=== PATIENT | male | born 2000 | race Caucasian/White ===

== ENCOUNTER 2023-03-26 21:17 | Observation (INO) ==
--- NOTE | 2023-03-26 22:18 | XRay Report ---
SINGLE VIEW CHEST CLINICAL HISTORY: Atypical chest pain. FINDINGS: A PA chest radiograph is obtained. No prior studies are available for comparison at the alix e of dictation. The cardiomediastinal silhouette is unremarkable. The lungs and pleural spaces are cl ear. No pneumothorax is seen. The bony thorax is grossly intact. IMPRESSION: No active disease in the chest. ACT 112: Negative or not required by law. Electronically signed by: Anam Hernandez M.D. 03/26/2023 10:17 PM
[2023-03-26 22:20] LABS: Basophils # (auto) 0.05 K/uL (0.00-0.20); Basophils % (auto) 0.3 %; Eosinophils # (auto) 0.15 K/uL (0.00-0.50); Eosinophils % (auto) 0.9 %; Hematocrit (blood only) 47.1 % (42.0-52.0); Hemoglobin 15.5 g/dl (14.0-18.0); Immature Granulocytes # (auto) 0.06 K/uL (0.01-0.20); Immature Granulocytes % (auto) 0.4 %; Lymphocytes # (auto) 1.46 K/uL (1.20-3.40); Lymphocytes % (auto) 9.1 %; Mean Corpuscular Hemoglobin 26.5 pg (25.0-34.0); Mean Corpuscular Hgb Conc 32.9 g/dL (32.0-36.0); Mean Corpuscular Volume 80.7 fL (80.0-100.0); Mean Platelet Volume 10.5 fL (9.4-12.4); Monocytes # (auto) 0.69 K/uL (0.11-0.59); Monocytes % (auto) 4.3 %; Neutrophils # (auto) 13.63 K/uL (1.40-6.50); Platelet Count 237 K/uL (130-400); RDW Coefficient of Variation 13.2 % (11.5-14.5); RDW Standard Deviation 38.3 fL (36.4-46.3); Red Blood Count 5.84 M/uL (4.70-6.10); White Blood Count 16.04 K/ul (4.8-10.8)
[2023-03-26 22:36] LABS: Albumin Globulin Ratio 1.5 (0.9-2); BUN Creatinine Ratio 11.4 (10-20); Bilirubin,Total 0.7 mg/dl (0.2-1.0); Calcium 10.5 mg/dl (8.6-10.3); Creatinine Clr Calc Pharmacy 105.8 ml/min; Est GFR (African American) 88.7 ml/min; Est GFR (Non-African American) 76.6 ml/min; Globulin 3.4 gm/dl (2.5-4.0); Potassium 3.7 mmol/L (3.5-5.1); Total Protein 8.4 gm/dl (6.0-8.3)
[2023-03-26 22:42] LABS: Troponin I High Sensitivity 6.4 pg/ml (0-20)
[2023-03-27] MEDS ORDERED: OPTIRAY 320 125ml IV ONE (01:00)
--- NOTE | 2023-03-27 04:49 | CT Scan Report ---
Exam(s): CTA CHEST IV Amt: 100 ml opti 320 EXAM: CT Angiography Chest With Intravenous Contrast CLINICAL HISTORY: Reason for exam: PE. TECHNIQUE: Axial computed tomographic angiography images of the chest with intravenous contrast. CTDI is 33.25 mGy and DLP is 766.38 mGy-cm. Automated exposure control was utilized for the study. A dose lowering technique was utilized adhering to the principles of ALARA. MIP reconstructed images were created and reviewed. COMPARISON: No relevant prior studies available. FINDINGS: Pulmonary arteries: Unremarkable. No pulmonary embolism. Aorta: No acute findings. No thoracic aortic aneurysm. Lungs: Unremarkable. No mass. No consolidation. Pleural space: Unremarkable. No significant effusion. No pneumothorax. Heart: Unremarkable. No cardiomegaly. No significant pericardial effusion. No evidence of RV dysfunction. Bones/joints: No acute fracture. No dislocation. Soft tissues: Unremarkable. Lymph nodes: Unremarkable. No enlarged lymph nodes. IMPRESSION: Normal chest CTA. No pulmonary embolism. Electronically signed by: Vlad Garcia MD 03/27/23 04:48 AM
[2023-03-27 06:36] LABS: Influenza A virus by PCR Negative (Neg); Influenza B virus by PCR Negative (Neg); RSV by PCR Negative (Neg); SARS CoV2 RNA(COVID-19) Ceph NEGATIVE (Negative)
--- NOTE | 2023-03-27 06:37 | History & Physical Report ---
Date of Service March 27, 2023 Assessment & Plan (1) Chest pain: Plan: 22yo male with one week of intermittent chest pain, pleuritic, but non- positional and non-exertional. Etiology unclear. Patient with normal troponin x 1, normal EKG with no ischemic changes. CTA without PE. Possibly secondary to asthma? consider possible arrhythmia, pericarditis - unlikely as no effusion noted, no EKG changes, anxiety? -Telemetry monitoring -Repeat troponin x 1 -Check 2D echo - limited study ordered -Check Mg, PO4 -Check TSH (2) Confusion: Plan: Patient with episode of confusion, does not fully recollect events prior to arrival. Possible arrhythmia, possible seizure. No history of seizure in the past. Has had multiple concussions -Awaiting UTox -Awaiting CT head result -Neuro checks q 2 hours -Consider Neurology consultation pending additional workup results (3) Asthma: Plan: No cough, SOB or wheeze at present -Albuterol PRN F/E/N - Saline lock. Mild hypercalcemia, repeat labs in AM, regular diet as tolerated Ppx - Low risk for DVT Code - Full Dispo - Observation to medical with telemetry History of Present Illness Chief Complaint: chest pain Primary Care Provider: NO PCP Darío Mauro is a 22yo male with history of mild persistent asthma and allergies presenting with chest pain and episode of transient confusion. History obtained from patient as well as girlfriend Sandra and parents at bedside. Patient reports that he has been having episodes of chest pain all week. Pain is bandlike across upper chest - feels like tightness and "pins and needles". Pain is worse with deep breathing. Episodes last approximately 20 minutes then resolve on their own. He has associated palpitations but no dizziness, lightheadedness or syncope. He denies recent trauma or muscle strain. He has been taking his Albuterol inhaler more frequently than usual with no relief in the chest discomfort. This evening patient was complaining of chest pain. He got into the shower. Shortly later his girlfriend found him sitting in the bedroom, very pale, tired and somewhat confused. He was complaining of feeling dizzy. He was speaking very slowly and told her that he needed to take a shower (after he just took one). He then developed more severe chest pain and was grabbing at his chest. His girlfriend placed a FaceTime call to patient's parents in [place], [place]. Mother reports that patient appeared tired and confused. He was hanging his head and speaking very slowly. He continued to complain of very severe chest pain so he was brought to the ER by his girlfriend. Family reports that patient's speech was clear and appropriate but slow. No facial droop. No focal numbness/tingling or weakness. Patient is uncertain if he passed out in the shower. He has been having a stuffy nose and some mild cough as well, otherwise denies fever, chills, headache, visual changes, stiff neck, abdominal pain, nausea, vomiting, diarrhea. No additional complaints at this time. Patient with no cardiac history. He is active in sports and exercises frequently. No history of exertional or post-exertional chest pain, palpitations or syncope. He has had several concussions in the past due to sports. Possibly a seizure when he was a small child - mother recalls him having an EEG study in the past. He also had an episode of transient visual disturbance as a child which was thought to be likely secondary to migraine. He denies recent head trauma or concussion. No headache or migraine symptoms. In the ER he is afebrile, hypertensive otherwise HD stable. Home Medications Medication Instructions Recorded Confirmed Type albuterol sulfate 90 mcg/actuation 2 puff inhalation UD PRN Shortness 03/27/23 03/27/23 History aerosol inhaler Of Breath Or Wheezing beclomethasone dipropionate 80 80 mcg intranasal UD 03/27/23 03/27/23 History mcg/actuation nasal HFA inhaler (QNASL) epinephrine 0.3 mg/0.3 mL 0.3 ml IM UD PRN Allergic Reaction 03/27/23 03/27/23 History injection, auto-injector Past Med/Surg History Medical History Asthma Surgical History History of tonsillectomy and adenoidectomy Family History Other Cancer Social History Smoking Status: Never smoker Hx Alcohol Use: Yes Alcohol type Comment: weekend use Hx Substance Use: Yes Prescribed Medications: Marijuana Feels Safe at Home: Yes Review of Systems Review of Systems: All systems reviewed & are unremarkable except as noted in HPI & below Physical Exam Physical Exam: General: patient resting comfortably, NAD, non-toxic in appearance, answering questions appropriately and following commands Skin: warm, dry, intact, no rashes or lesions HEENT: NC/AT, Pupils slightly enlarged 7mm equal bilaterally, reactive to light, EOMI, anicteric sclera, conjunctiva without injection, external ear normal to inspection and nontender, nares patent, moist mucus membranes, dentition intact, no oropharyngeal lesions, neck supple, trachea midline, no LAD, no thyromegaly, no JVD Heart: +S1/S2, regular, no m/r/g, no chest wall pain with palpation Lungs: equal air entry bilaterally, no rales/rhonchi/wheezes Abd: +BS, soft, NT/ND, no masses/organomegaly/ascites Ext: warm, 2+ pulses in UE/LE bilaterally, no clubbing/cyanosis or edema Neuro: nonfocal, patient AA&O x 4, speech intact, no facial droop, CN II-XII grossly intact, sensation to light touch intact, moving all extremities on command with equal strength 5/5, no drift Results & Data Results & Data Vital Signs (Past 12 Hours) Vital Signs Temp Pulse Pulse Resp BP BP Pulse Ox 03/27/23 05:29 55 L 03/27/23 05:14 67 16 155/69 H 100 03/27/23 04:00 54 L 14 102/37 L 98 03/27/23 03:11 58 L 20 118/66 97 03/27/23 01:55 74 18 126/67 96 03/27/23 01:26 64 03/26/23 23:45 100 03/26/23 23:45 58 L 18 140/78 100 03/26/23 21:21 36.5 C 87 16 160/77 H 98 O2 Del Method 03/27/23 05:29 03/27/23 05:14 03/27/23 04:00 03/27/23 03:11 03/27/23 01:55 Room Air 03/27/23 01:26 03/26/23 23:45 Room Air 03/26/23 23:45 Room Air 03/26/23 21:21 Room Air Laboratory Results Laboratory Results WBC 16.04 K/ul (4.8-10.8) H 03/26/23 21:59 RBC 5.84 M/uL (4.70-6.10) 03/26/23 21:59 Hgb 15.5 g/dl (14.0-18.0) 03/26/23 21:59 Hct 47.1 % (42.0-52.0) 03/26/23 21:59 MCV 80.7 fL (80.0-100.0) 03/26/23 21:59 MCH 26.5 pg (25.0-34.0) 03/26/23 21:59 MCHC 32.9 g/dL (32.0-36.0) 03/26/23 21:59 RDW Std Deviation 38.3 fL (36.4-46.3) 03/26/23 21:59 RDW Coeff of Maik 13.2 % (11.5-14.5) 03/26/23 21:59 Plt Count 237 K/uL (130-400) 03/26/23 21:59 MPV 10.5 fL (9.4-12.4) 03/26/23 21:59 Immature Gran % (Auto) 0.4 % 03/26/23 21:59 Neut % (Auto) 85.0 % 03/26/23 21:59 Lymph % (Auto) 9.1 % 03/26/23 21:59 Laurens % (Auto) 4.3 % 03/26/23 21:59 Eos % (Auto) 0.9 % 03/26/23 21:59 Baso % (Auto) 0.3 % 03/26/23 21:59 Neut # (Auto) 13.63 K/uL (1.40-6.50) H 03/26/23 21:59 Lymph # (Auto) 1.46 K/uL (1.20-3.40) 03/26/23 21:59 Laurens # (Auto) 0.69 K/uL (0.11-0.59) H 03/26/23 21:59 Eos # (Auto) 0.15 K/uL (0.00-0.50) 03/26/23 21:59 Baso # (Auto) 0.05 K/uL (0.00-0.20) 03/26/23 21:59 Immature Gran # (Auto) 0.06 K/uL (0.01-0.20) 03/26/23 21:59 Sodium 136 mmol/L (136-145) 03/26/23 21:59 Potassium 3.7 mmol/L (3.5-5.1) 03/26/23 21:59 Chloride 101 mmol/L (98-107) 03/26/23 21:59 Carbon Dioxide 29 mmol/L (21-32) 03/26/23 21:59 Anion Gap 6 (3-11) 03/26/23 21:59 BUN 15 mg/dl (6-23) 03/26/23 21:59 Creatinine 1.32 mg/dl (0.6-1.4) 03/26/23 21:59 Est Cr Clr Drug Dosing 105.8 ml/min 03/26/23 21:59 Est GFR ( Amer) 88.7 ml/min 03/26/23 21:59 Est GFR (Non-Af Amer) 76.6 ml/min 03/26/23 21:59 BUN/Creatinine Ratio 11.4 (10-20) 03/26/23 21:59 Glucose 113 mg/dl (70-99(Fasting)) H 03/26/23 21:59 Calcium 10.5 mg/dl (8.6-10.3) H 03/26/23 21:59 Total Bilirubin 0.7 mg/dl (0.2-1.0) 03/26/23 21:59 AST 22 U/L (13-39) 03/26/23 21:59 ALT 39 U/L (7-52) 03/26/23 21:59 Alkaline Phosphatase 73 U/L (34-104) 03/26/23 21:59 Troponin I High Sens 6.4 pg/ml (0-20) 03/26/23 21:59 Total Protein 8.4 gm/dl (6.0-8.3) H 03/26/23 21:59 Albumin 5.0 gm/dl (3.4-5.0) 03/26/23 21:59 Globulin 3.4 gm/dl (2.5-4.0) 03/26/23 21:59 Albumin/Globulin Ratio 1.5 (0.9-2) 03/26/23 21:59 Lipase 26 U/L (11-82) 03/26/23 21:59 Impressions Chest X-Ray 03/26/23 21:24 SINGLE VIEW CHEST CLINICAL HISTORY: Atypical chest pain. FINDINGS: A PA chest radiograph is obtained. No prior studies are available for comparison at the time of dictation. The cardiomediastinal silhouette is unremarkable. The lungs and pleural spaces are clear. No pneumothorax is seen. The bony thorax is grossly intact. IMPRESSION: No active disease in the chest. ACT 112: Negative or not required by law. Electronically signed by: Anam Hernandez M.D. 03/26/2023 10:17 PM Chest CTA 03/27/23 00:31 Exam(s): CTA CHEST IV Amt: 100 ml opti 320 EXAM: CT Angiography Chest With Intravenous Contrast CLINICAL HISTORY: Reason for exam: PE. TECHNIQUE: Axial computed tomographic angiography images of the chest with intravenous contrast. CTDI is 33.25 mGy and DLP is 766.38 mGy-cm. Automated exposure control was utilized for the study. A dose lowering technique was utilized adhering to the principles of ALARA. MIP reconstructed images were created and reviewed. COMPARISON: No relevant prior studies available. FINDINGS: Pulmonary arteries: Unremarkable. No pulmonary embolism. Aorta: No acute findings. No thoracic aortic aneurysm. Lungs: Unremarkable. No mass. No consolidation. Pleural space: Unremarkable. No significant effusion. No pneumothorax. Heart: Unremarkable. No cardiomegaly. No significant pericardial effusion. No evidence of RV dysfunction. Bones/joints: No acute fracture. No dislocation. Soft tissues: Unremarkable. Lymph nodes: Unremarkable. No enlarged lymph nodes. IMPRESSION: Normal chest CTA. No pulmonary embolism. Electronically signed by: Vlad Garcia MD 03/27/23 04:48 AM ECG Additional Comments: EKG with NSR at 78bpm, nomal axis, OL=327, QRS=98, HMx=884, no acute ischemic changes PG Care Time/CCT Total # of Minutes Spent Total Time Spent with Patient: Total time spent is greater than 50% in coordination of care (as documented) at patient's floor/unit and/or counseling patient: Coding Level of Care Code 93822 INT INP/OBS CARE 2/55MIN Diagnoses Chest pain R07.9 Confusion R41.0 Asthma J45.909
[2023-03-27 06:40] LABS: Amphetamines+Metham, Urine Neg (Neg); Barbiturates, Urine Neg (Neg); Benzodiazepine, Urine Neg (Neg); Cocaine, Urine Neg (Neg); MDMA (Ecstacy), Urine Neg (Neg); Methadone, Urine Neg (Neg); Opiate, Urine Neg (Neg); Phencyclidine, Urine Neg (Neg)
--- NOTE | 2023-03-27 07:12 | CT Scan Report ---
CT head/brain wo con CLINICAL HISTORY: altered ms Technique: Contiguous axial CT images of the head were acquired from the base of the skull to the pete saad without intravenous contrast administration. Images were viewed in brain, subdural and bone [facility]. Automated dose lowering techniques and/or adjustment according to patient size were utilized for this exam. Comparison: None available at the time of this dictation. Findings: The ventricles, basal cisterns, and cerebral sulci are normal. There is no acute intracranial hemorrh age or evidence of acute territorial infarction. Neither mass effect, shift of the midline structures , nor abnormal extra-axial fluid collections are shown. Imaged portions of the paranasal sinuses and mastoid air cells are clear. The orbits appear normal. There are no acute fractures of the calvaria or scalp swelling. Impression: No acute intracranial hemorrhage, no evidence of acute territorial infarction or other acute intracra nial disease process. ACT 112: Negative or not required by law. Electronically signed by: Brent James M.D. 03/27/2023 7:10 AM
--- NOTE | 2023-03-27 08:31 | Emergency Department Note ---
Impression & Plan Left-sided chest pain, Acute alteration in mental status, Heart palpitations Admit to the [facility] ED Provider Note NAME: ABDULLAHI FERNANDEZ AGE: 22 SEX: M ARRIVES VIA: Walk-In INFORMANT: Patient and his girlfriend ED PROVIDER(S): Mary Underwood DO CHIEF COMPLAINT: Left-sided chest pain and altered mental status PLAN: Disposition: Admit to the [facility] Condition: Stable MEDICAL DECISION MAKING: This is a 22-year-old male patient who presents to the emergency department with an episode of palpitations, chest pain, near syncope and altered mental status. The patient does have a history of asthma but these episodes are not consistent with his usual asthma attacks. He has been waking in the mornings with episodes of chest pain and heart palpitations. Today's episode was accompanied by an altered mental status and shortness of breath. Work-up today included a normal EKG. Laboratory studies did show moderate leukocytosis with a white blood cell count of 16. There was no evidence of anemia. Glucose was 113. There was normal renal function and electrolytes. High-sensitivity troponin was normal. Initial chest x-ray was normal. EKG was normal sinus rhythm. I remain concerned about the possibility of a pulmonary embolism so CT scan of the chest was ordered but was negative. Patient's mental status for me was normal but by history from the girlfriend and then when the parents arrived gave a description of a prolonged delirium. He does not have recollection of some of the events of today. I remain concerned about the presentation and [facility] and [facility] will [facility] for further inpatient care and neurology evaluation. We talked about the possibility of a cardiac dysrhythmia and the need for cardiac monitoring as well as the possibility of a seizure. Triage Nursing notes reviewed and agree with them. Additional history obtained from the patient's girlfriend who accompanied him here to the hospital and then patient's parents arrived later. Vital Signs: reviewed and unremarkable Differential diagnosis: Cardiac dysrhythmia, PE, seizure, syncope, hypoxia, intracranial mass Diagnostics interpreted by me: ECG: Normal sinus rhythm at [address] segment elevation or signs of ischemia. There is no ectopy. Cardiac Monitoring: Normal sinus rhythm at 72 Laboratory studies: See below Imaging studies: As per stat rad CT chest: See report HPI: 22/M arrives for evaluation of chest pain and lightheadedness. Patient describes having heart palpitations and slight chest discomfort upon awakening over the past couple of days. He has had increased asthma attacks for the past couple days as well and has been using his inhaler more frequently. However today, the patient had an episode of fairly severe chest pain and lightheadedness along with palpitations for which he used his inhaler. It seemed to subside and he went to get in the shower. He then got out of the shower because he felt increasingly short of breath. His girlfriend explains that he was quite pale and seemed to have an altered mental status. A FaceTime and with his parents and the parents state that he was out of it with altered mental status at that time. They encouraged them to go to the hospital. They required some assistance to get the patient into the car. He has no recollection of getting to the hospital. 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 Pupils are equal, round, and reactive to light. Extraocular eye muscles are intact and sclera are anicteric. Ears - bilaterally patent canals with noninjected tympanic membranes and no evidence of hemotympanum. Nose - moist nasal mucosa without discharge. Mouth - moist buccal mucosa. Oropharynx is nonerythematous and there is no tonsillar exudate or edema noted. Neck: Supple; no JVD, nuchal rigidity, cervical lymphadenopathy, or auscultated bruits. Heart: Regular rate and rhythm. There is a normal S1 and S2 with no murmurs, clicks, or gallops appreciated. Lungs: Clear to auscultation bilaterally with no wheezes, rales, or rhonchi. Abdomen: Soft, completely nontender, nondistended, with good bowel sounds. There are no palpable pulsatile masses or hepatosplenomegaly. There is no guarding, rigidity, or rebound noted. Extremities: No evidence of cyanosis, clubbing, or edema. There are easily palpable peripheral pulses. Neuro:The patient is awake and alert, oriented to day, time, and place. Muscle strength is 5/5 in all 4 extremities. 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 There are no cerebellar signs. ED COURSE: Times/Reassessments: 0010: Patient was evaluated in room B2. A complete history and physical was performed. An order was placed for continuous cardiac monitoring. Patient was in a normal sinus rhythm at a rate of 72. A twelve- lead EKG was obtained as described above. A portable chest x-ray was performed. I reviewed the results with the patient and his girlfriend. Patient's parents arrived. He went for CT scan of the chest. We then had a lengthy discussion about the overall events of the day and remain concerned about the patient's presentation. I discussed the case with the [facility] and they will evaluate for further inpatient care. 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 Beliefs That Will Affect Care: None Current Living Situation: Other Feels Safe at Home: Yes Allergies Allergies Allergy/AdvReac Type Severity Reaction Status Date / Time Penicillins Allergy Hives Verified 03/27/23 09:29 pepper (genus Capsicum) Allergy Hives Verified 03/27/23 09:30 tree nut Allergy Hives Verified 03/27/23 09:29 Home Meds Home Medications Medication Instructions Recorded Confirmed albuterol sulfate 90 mcg/actuation 2 puff inhalation UD PRN Shortness 03/27/23 03/27/23 aerosol inhaler Of Breath Or Wheezing beclomethasone dipropionate 80 80 mcg intranasal UD 03/27/23 03/27/23 mcg/actuation nasal HFA inhaler (QNASL) epinephrine 0.3 mg/0.3 mL 0.3 ml IM UD PRN Allergic Reaction 03/27/23 03/27/23 injection, auto-injector Results & Data (ED) Vital Signs Vital Signs - 24 hr 03/26/23 23:45 03/26/23 23:45 03/27/23 01:26 Pulse Rate 64 Pulse Rate [Apical] 58 L Pulse Rhythm [Apical] Regular Respiratory Rate 18 Respiratory Effort / Characteristics Non-Labored Spontaneous Respiratory Depth Normal Respiratory Pattern Regular Blood Pressure Blood Pressure [Right Arm] 140/78 Blood Pressure Mean Blood Pressure Mean [Right Arm] 98 Blood Pressure Position [Right Arm] Lying Pulse Oximetry 100 100 Oxygen Delivery Method Room Air Room Air 03/27/23 01:55 03/27/23 03:11 03/27/23 04:00 Pulse Rate 58 L 54 L Pulse Rate [Apical] 74 Pulse Rhythm [Apical] Regular Respiratory Rate 18 20 14 Respiratory Effort / Characteristics Non-Labored Spontaneous Respiratory Depth Normal Respiratory Pattern Regular Blood Pressure 118/66 102/37 L Blood Pressure [Right Arm] 126/67 Blood Pressure Mean 83 58 Blood Pressure Mean [Right Arm] 86 Blood Pressure Position [Right Arm] Lying Pulse Oximetry 96 97 98 Oxygen Delivery Method Room Air 03/27/23 05:14 03/27/23 05:29 Pulse Rate 67 55 L Pulse Rate [Apical] Pulse Rhythm [Apical] Respiratory Rate 16 Respiratory Effort / Characteristics Respiratory Depth Respiratory Pattern Blood Pressure 155/69 H Blood Pressure [Right Arm] Blood Pressure Mean 97 Blood Pressure Mean [Right Arm] Blood Pressure Position [Right Arm] Pulse Oximetry 100 Oxygen Delivery Method Laboratory Data 03/26/23 21:59 03/26/23 21:59 Lab Results 03/26/23 03/26/23 Range/Units 21:59 21:59 WBC 16.04 H (4.8-10.8) K/ul RBC 5.84 (4.70-6.10) M/uL Hgb 15.5 (14.0-18.0) g/dl Hct 47.1 (42.0-52.0) % MCV 80.7 (80.0-100.0) fL MCH 26.5 (25.0-34.0) pg MCHC 32.9 (32.0-36.0) g/dL RDW Std Deviation 38.3 (36.4-46.3) fL RDW Coeff of Maik 13.2 (11.5-14.5) % Plt Count 237 (130-400) K/uL MPV 10.5 (9.4-12.4) fL Immature Gran % (Auto) 0.4 % Neut % (Auto) 85.0 % Lymph % (Auto) 9.1 % [place] % (Auto) 4.3 % Eos % (Auto) 0.9 % Baso % (Auto) 0.3 % Neut # (Auto) 13.63 H (1.40-6.50) K/uL Lymph # (Auto) 1.46 (1.20-3.40) K/uL [place] # (Auto) 0.69 H (0.11-0.59) K/uL Eos # (Auto) 0.15 (0.00-0.50) K/uL Baso # (Auto) 0.05 (0.00-0.20) K/uL Immature Gran # (Auto) 0.06 (0.01-0.20) K/uL Sodium 136 (136-145) mmol/L Potassium 3.7 (3.5-5.1) mmol/L Chloride 101 (98-107) mmol/L Carbon Dioxide 29 (21-32) mmol/L Anion Gap 6 (3-11) BUN 15 (6-23) mg/dl Creatinine 1.32 (0.6-1.4) mg/dl Est Cr Clr Drug Dosing 105.8 ml/min Est GFR ( Amer) 88.7 ml/min Est GFR (Non-Af Amer) 76.6 ml/min BUN/Creatinine Ratio 11.4 (10-20) Glucose 113 H (70-99(Fasting)) mg/dl Calcium 10.5 H (8.6-10.3) mg/dl Total Bilirubin 0.7 (0.2-1.0) mg/dl AST 22 (13-39) U/L ALT 39 (7-52) U/L Alkaline Phosphatase 73 (34-104) U/L Troponin I High Sens 6.4 (0-20) pg/ml Total Protein 8.4 H (6.0-8.3) gm/dl Albumin 5.0 (3.4-5.0) gm/dl Globulin 3.4 (2.5-4.0) gm/dl Albumin/Globulin Ratio 1.5 (0.9-2) Lipase 26 (11-82) U/L Administered Medications Discontinued Medications Gadobutrol (Gadobutrol 65ml Vial) 10 ml IV ONCE ONE Stop: 03/27/23 18:25 Last Admin: 03/27/23 18:24 Dose: 10 ml Documented By: YIMI Ioversol (Optiray 320 125ml) 100 ml IV ONCE ONE Stop: 03/27/23 01:01 Last Admin: 03/27/23 01:01 Dose: 100 ml Documented By: JOSE DANIEL Imaging Data Radiologist's Impression: Chest X-Ray 03/26/23 21:24 SINGLE VIEW CHEST CLINICAL HISTORY: Atypical chest pain. FINDINGS: A PA chest radiograph is obtained. No prior studies are available for comparison at the time of dictation. The cardiomediastinal silhouette is unremarkable. The lungs and pleural spaces are clear. No pneumothorax is seen. The bony thorax is grossly intact. IMPRESSION: No active disease in the chest. ACT 112: Negative or not required by law. Electronically signed by: Anam Hernandez M.D. 03/26/2023 10:17 PM Chest CTA 03/27/23 00:31 Exam(s): CTA CHEST IV Amt: 100 ml opti 320 EXAM: CT Angiography Chest With Intravenous Contrast CLINICAL HISTORY: Reason for exam: PE. TECHNIQUE: Axial computed tomographic angiography images of the chest with intravenous contrast. CTDI is 33.25 mGy and DLP is 766.38 mGy-cm. Automated exposure control was utilized for the study. A dose lowering technique was utilized adhering to the principles of ALARA. MIP reconstructed images were created and reviewed. COMPARISON: No relevant prior studies available. FINDINGS: Pulmonary arteries: Unremarkable. No pulmonary embolism. Aorta: No acute findings. No thoracic aortic aneurysm. Lungs: Unremarkable. No mass. No consolidation. Pleural space: Unremarkable. No significant effusion. No pneumothorax. Heart: Unremarkable. No cardiomegaly. No significant pericardial effusion. No evidence of RV dysfunction. Bones/joints: No acute fracture. No dislocation. Soft tissues: Unremarkable. Lymph nodes: Unremarkable. No enlarged lymph nodes. IMPRESSION: Normal chest CTA. No pulmonary embolism. Electronically signed by: Vlad Garcia MD 03/27/23 04:[address] 03/27/23 05:21 CT head/brain wo con CLINICAL HISTORY: altered ms Technique: Contiguous axial CT images of the head were acquired from the base of the skull to the vertex without intravenous contrast administration. Images were viewed in brain, subdural and bone windows. Automated dose lowering techniques and/or adjustment according to patient size were utilized for this exam. Comparison: None available at the time of this dictation. Findings: The ventricles, basal cisterns, and cerebral sulci are normal. There is no acute intracranial hemorrhage or evidence of acute territorial infarction. Neither mass effect, shift of the midline structures, nor abnormal extra-axial fluid collections are shown. Imaged portions of the paranasal sinuses and mastoid air cells are clear. The orbits appear normal. There are no acute fractures of the calvaria or scalp swelling. Impression: No acute intracranial hemorrhage, no evidence of acute territorial infarction or other acute intracranial disease process. ACT 112: Negative or not required by law. Electronically signed by: Brent James M.D. 03/27/2023 7:10 AM Discharge Plan Visit Data Chief Complaint: Chest Pain Stated Complaint: CHEST PAIN ED Provider: Mary Underwood Discharge Problem: Left-sided chest pain, Acute alteration in mental status, Heart palpitations Patient Disposition: Admitted As Inpatient Discharge Instructions Interventions: ED Discharge Assessment Last Done: 03/27/23 14:32
[2023-03-27] MEDS ORDERED: ACETAMINOPHEN 325 MG TAB PO PRN (08:57)
[2023-03-27] MEDS ORDERED: ALBUTEROL HFA 8 GM INHALER INH PRN (08:57)
[2023-03-27] MEDS ORDERED: ONDANSETRON INJ 2 MG/ML 2 ML VIAL IV PRN (08:57)
[2023-03-27] MEDS ORDERED: Patient's ALLERGY Info needs ENTERED SCH (09:15)
[2023-03-27 10:23] LABS: Magnesium 2.1 mg/dl (1.7-2.4); Phosphorus 4.4 mg/dl (2.5-4.9)
[2023-03-27 10:30] LABS: Troponin I High Sensitivity 3.3 pg/ml (0-20)
[2023-03-27 10:39] LABS: Thyroid Stimulating Hormone 2.089 uIu/ml (0.300-4.500)
--- NOTE | 2023-03-27 12:11 | Neurology Consultation ---
Date of Consultation March 27, 2023 Assessment & Plan (1) Pre-syncope: (2) Episode of confusion: (3) Migraine with aura: Plan 22-year-old male who has been experiencing recurrent episodes of chest pain, palpitations, now presenting with a similar episode with associated presyncopal symptoms and confusion. No clear loss of consciousness. No observed seizure activity. Intact mental status and neurological examination at this time. Normal CT of the head. Normal EEG completed this morning. Does appear to have bradycardia. Patient also experiences episodic migraine with aura/classic migraine. Overall frequency low, and not related to his current presentation. Would recommend cardiac evaluation including echocardiogram, cardiac monitoring on telemetry, consider cardiology consultation. Consider 30-day mobile cardiac outpatient telemetry. I am uncertain if his recent episode may have been related to a paradoxical effect from his albuterol inhaler which he used prior to symptom onset. I am uncertain if his use of medical marijuana may also have contributed to his episode. His presentation does not seem very consistent with seizure disorder. However, would recommend MRI of the brain, with and without contrast, seizure protocol. Would not start an antiseizure medication at this time. I will advise further, if necessary, pending completion of his brain MRI. I would not recommend starting any particular treatment for his infrequent migraine. However, going forward, if he were to require an acute abortive medication, other than ipiv-hut-oxirdka analgesics, I think a trial of a CGRP jose such as Nurtec ODT, or Ubrelvy, would be preferable given his uncertain cardiac status. 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 Last night, he had experienced another episode of chest pain, took a shower, was sitting in his bedroom, apparently looking pale and confused. He endorsed a feeling of dizziness. Symptoms were witnessed by his partner who brought him to the emergency department for further evaluation. His parents are currently at bedside, from [facility]. It is unclear if there was an episode of syncope or loss of consciousness associated with this episode. He did not sustain any obvious injuries. No tongue bite or incontinence. No headache or muscle pain. He does endorse a recent nonspecific upper respiratory infection. He had also utilized his asthma inhaler prior to the episode. He does have a history of several sports related concussions, last episode occurred a year or so ago. No associated loss of consciousness with these events. He may have had a seizure-like episode in childhood and had an unremarkable evaluation at that time including EEG. Patient also endorses a history of episodic migraine with aura. He describes a transient scintillating scotoma lasting about 10 to 15 minutes prior to onset of thumping unilateral headache with associated nausea and light and sound sensitivity. These episodes occur perhaps 1 time per month or less. He usually manages them with sleep and [id number]-[id number] medication if necessary. I note that he has had a fairly low heart rate on monitoring, typically in the 40s and 50s although he did have a heart rate of 38 bpm this morning at 8 AM. His blood pressure readings have been normal. He does endorse use of medical marijuana to address his anxiety. A CTA of the chest was negative for pulmonary embolism. A CT of the head was negative for hemorrhage or acute process, I did independently review these images. No hydrocephalus or other obvious pathology. No hemorrhage or subdural collection. Electrocardiogram reveals a normal sinus rhythm. Allergies Allergy/AdvReac Type Severity Reaction Status Date / Time Penicillins Allergy Hives Verified 03/27/23 09:29 pepper (genus Capsicum) Allergy Hives Verified 03/27/23 09:30 tree nut Allergy Hives Verified 03/27/23 09:29 Home Medications Medication Instructions Recorded Confirmed Type albuterol sulfate 90 mcg/actuation 2 puff inhalation UD PRN Shortness 03/27/23 03/27/23 History aerosol inhaler Of Breath Or Wheezing beclomethasone dipropionate 80 80 mcg intranasal UD 03/27/23 03/27/23 History mcg/actuation nasal HFA inhaler (QNASL) epinephrine 0.3 mg/0.3 mL 0.3 ml IM UD PRN Allergic Reaction 03/27/23 03/27/23 History injection, auto-injector Patient History Medical History Asthma Surgical History History of tonsillectomy and adenoidectomy Family History Other Cancer Social History Smoking Status: Never smoker Hx Alcohol Use: Yes Alcohol type Comment: weekend use Hx Substance Use: Yes Prescribed Medications: Marijuana Feels Safe at Home: Yes Review of Systems Constitutional: no fever and no chills Eyes: no blind spots and no diplopia Ear, Nose, Mouth, Throat: no hearing loss Respiratory: no cough and no dyspnea Cardiovascular: as per Subjective / HPI, + chest pain and + palpitations Gastrointestinal: no abdominal pain and no vomiting Genitourinary: no urinary incontinence Integumentary: no rash and no lesions Neurologic: as per Subjective / HPI; no gait abnormality, no localized weakness, no loss of sensation, no lack of coordination, no tremor(s), no abnormal movements, no headache(s), no abnormal speech and no memory loss Psychiatric: + anxiety Hematologic / Lymphatic: no easy bleeding and no easy bruising Exam (Neuro) Constitutional: well developed and well nourished; no acute distress Eyes: normal visual miranda by confrontation, PERRL, normal accommodation and EOM intact bilaterally; no nystagmus Neurologic: Oriented to:: Person, Place and Time Memory: Short Term Intact and Remote Intact Attention: Span Intact and Concentration Intact Language: Naming Objects and Repeating Phrases Speech Fluency: negative Dysarthria Speech Aphasia: negative Aphasia Fund of Knowledge: Current Events, Past History and Vocabulary Cranial Nerves: Normal II (Visual miranda full to confrontation, visual acuity normal), III, IV, (Pupils equal round reactive to light and accommodation, eye movements normal), V (Facial sensation intact), VII (There is no facial droop or weakness), VIII (Hearing intact), IX, X (Palate elevates to midline), XI (Shoulder shrug intact) and XII (Tongue protrudes to midline) Motor Strength: Normal Lower Extremities and Normal Upper Extremities; negative Pronator Drift Motor Tone: Normal Lower Extremities and Normal Upper Extremities Muscle Bulk/Involuntary Movements: No Involuntary Movements; negative Muscle Atrophy Sensation: Light Touch Intact, Pain/Temperature Intact, Vibration Intact and Proprioception Intact Coordination: Normal; negative Limited Balance, Dysdiadochokinesia, Finger-Nose Abnormal or Heel-Cavanaugh Abnormal Deep Tendon Reflexes: Rt Triceps: 2+, Lt Triceps: 2+, Rt Biceps: 2+, Lt Biceps: 2+, Rt Brachioradialis: 2+, Lt Brachioradialis: 2+, Rt Patellar: 2+, Lt Patellar: 2+, Rt Ankle: 2+ and Lt Ankle: 2+ Special Tests: negative Babinski Present Gait: Normal Station and Gait Results & Data Vital Signs (Past 12 Hours) Vital Signs Pulse Pulse Resp BP BP Pulse Ox O2 Del Method 03/27/23 11:00 52 L 16 126/84 99 Room Air 03/27/23 08:57 47 L 16 114/63 95 Room Air 03/27/23 08:50 48 L 16 95 03/27/23 08:48 48 L 03/27/23 08:40 47 L 15 95 03/27/23 08:30 47 L 13 96 03/27/23 08:20 48 L 13 96 03/27/23 08:10 48 L 13 95 03/27/23 08:00 38 L 13 97 03/27/23 08:00 131/80 03/27/23 07:50 48 L 16 96 03/27/23 07:40 50 L 14 95 03/27/23 07:30 76 13 97 03/27/23 07:20 51 L 17 96 03/27/23 07:10 48 L 14 95 03/27/23 07:00 47 L 15 96 03/27/23 07:00 138/81 03/27/23 06:50 47 L 15 95 03/27/23 06:00 68 16 134/75 97 03/27/23 05:29 55 L 03/27/23 05:14 67 16 155/69 H 100 03/27/23 04:00 54 L 14 102/37 L 98 03/27/23 03:11 58 L 20 118/66 97 03/27/23 01:55 74 18 126/67 96 Room Air 03/27/23 01:26 64 Laboratory Results WBC 16.04, hemoglobin 15.5, hematocrit 47.1, MCV 80.7, platelet count 273, sodium 136, potassium 3.7, BUN 13, creatinine 1.32, glucose 113, magnesium 2.1, AST 22, ALT 39, high-sensitivity troponin 3.3, TSH 2.089, urine toxicology screen positive for marijuana, SARS COVID 2 testing negative, influenza and RSV testing negative Diagnostic Findings CT of the head is as described in the HPI, I independently reviewed these images. Electrocardiogram reveals a normal sinus rhythm. Bradycardia noted on heart rate monitoring, as low as 38 bpm. EEG completed this morning negative for epileptiform abnormalities. Coding Level of Care Code 43652 INT INP/OBS CARE 3/75MIN Diagnoses Pre-syncope R55 Episode of confusion R41.0 Migraine with aura G43.109 Time Spent (min) 80
--- NOTE | 2023-03-27 12:13 | Electroencephalogram ---
EEG Procedure Note Date of Service March 27, 2023 Start / End Times Start Time: 10:56 AM End Time: 11:16 AM Referring Physician Maura History Syncope, seizure-like activity Home Medication List Medication Instructions Recorded Confirmed Type albuterol sulfate 90 mcg/actuation 2 puff inhalation UD PRN Shortness 03/27/23 03/27/23 History aerosol inhaler Of Breath Or Wheezing beclomethasone dipropionate 80 80 mcg intranasal UD 03/27/23 03/27/23 History mcg/actuation nasal HFA inhaler (QNASL) epinephrine 0.3 mg/0.3 mL 0.3 ml IM UD PRN Allergic Reaction 03/27/23 03/27/23 History injection, auto-injector Inpatient Medication List Discontinued Medications Ioversol (Optiray 320 125ml) 100 ml IV ONCE ONE Stop: 03/27/23 01:01 Last Admin: 03/27/23 01:01 Dose: 100 ml Documented By: JOSE DANIEL Description This is a 21 electrode EEG with a single channel dedicated to limited EKG. The electrodes were placed in accordance with the International 10-20 system. There is a posterior dominant rhythm of 9 to 10 Hz which is symmetrically distributed and attenuates with eye opening. There is a normal anterior to posterior organization. Photic stimulation and hyperventilation are unremarkable. There is a symmetric frontal beta rhythm. There is no focal slowing. There are no epileptiform abnormalities. There are no changes suggestive of sleep. Interpretation Normal-appearing awake/drowsy EEG. A normal EEG does not completely exclude a diagnosis of epilepsy. Further clinical correlation may be needed. [facility] EEG Procedure Codes Indication for Procedure (1) Episode of confusion: (2) Pre-syncope: (3) Seizure-like activity: Neurology Neurology: [id number] EEG include record awake & drowsy
--- NOTE | 2023-03-27 14:21 | Electrocardiogram Report ---
Test Reason : Blood Pressure : / mmHG Vent. Rate : 078 BPM Atrial Rate : 078 BPM P-R Int : 134 ms QRS Dur : 098 ms QT Int : 394 ms P-R-T Axes : 064 074 046 degrees QTc Int : 449 ms Normal sinus rhythm Normal ECG No previous ECGs available Confirmed by Misha Aguilera ([id number]) on 03/27/2023 2:21:45 PM Referred By: REFERRED SELF Confirmed By:Miguel A Aguilera
--- NOTE | 2023-03-27 14:55 | XCELERA ---
[id number] \\[id number]}___[id number].pdf
[2023-03-27 14:58] LABS: Appearance Urine Clear (Clear); Bilirubin Urine Negative (Negative); Blood Urine Negative (Negative); Color Urine Yellow; Glucose Urine UA Negative (Negative); Ketones Urine Trace (Negative); Leukocyte Esterase Urine Negative (Negative); Nitrite Urine Negative (Negative); Protein Urine Negative (Negative); Specific Gravity Urine > 1.045 (1.000-1.030); Urobilinogen Urine Negative (Negative)
[2023-03-27] MEDS ORDERED: GADOBUTROL 65ML VIAL IV ONE (18:24)
--- NOTE | 2023-03-27 18:54 | Magnetic Resonance Report ---
MR brain seizure wo/w con HISTORY: 22 years-old Male syncope acute syncope COMPARISON: Head CT of same day TECHNIQUE: Multiplanar multisequence MRI of the brain was obtained both with and without the use of I V contrast. FINDINGS: No restricted diffusion. Midline structures appear unremarkable. Moderate adenoid tonsillar enlargeme nt. No acute intracranial hemorrhage, midline shift, abnormal extra-axial collection, hydrocephalus o r intra-axial mass. No pathologic blooming artifact. Normal volume and signal of the brain parenchyma . No acute seizure focus, mesial temporal sclerosis, chase matter heterotopia or cortical dysplasia. Cerebral venous sinuses and major arterial flow voids appear patent. Skull, orbits and soft tissues a re unremarkable. Mucosal thickening of the paranasal sinuses, severe within the right maxillary sinus . Mastoid air cells are generally clear. No abnormal enhancement. IMPRESSION: 1. No acute intracranial abnormality. 2. No abnormal enhancement. ACT 112: Negative or not required by law. The above report was generated using voice recognition software. It may contain grammatical, syntax o r spelling errors. Electronically signed by: Uziel Car M.D. 03/27/2023 6:52 PM
[2023-03-29 13:37] LABS: Marijuana Quant, GCMS Urine 675 ng/mL (<5)
--- NOTE | 2023-04-01 23:58 | Discharge Summary ---
Date of Service March 27, 2023 Admission HPI Per Admitting Provider Darío Mauro is a 22yo male with history of mild persistent asthma and allergies presenting with chest pain and episode of transient confusion. History obtained from patient as well as girlfriend Sandra and parents at bedside. Patient reports that he has been having episodes of chest pain all week. Pain is bandlike across upper chest - feels like tightness and "pins and needles". Pain is worse with deep breathing. Episodes last approximately 20 minutes then resolve on their own. He has associated palpitations but no dizziness, lightheadedness or syncope. He denies recent trauma or muscle strain. He has been taking his Albuterol inhaler more frequently than usual with no relief in the chest discomfort. This evening patient was complaining of chest pain. He got into the shower. Shortly later his girlfriend found him sitting in the bedroom, very pale, tired and somewhat confused. He was complaining of feeling dizzy. He was speaking very slowly and told her that he needed to take a shower (after he just took one). He then developed more severe chest pain and was grabbing at his chest. His girlfriend placed a FaceTime call to patient's parents in [place], [place]. Mother reports that patient appeared tired and confused. He was hanging his head and speaking very slowly. He continued to complain of very severe chest pain so he was brought to the ER by his girlfriend. Family reports that patient's speech was clear and appropriate but slow. No facial droop. No focal numbness/tingling or weakness. Patient is uncertain if he passed out in the shower. He has been having a stuffy nose and some mild cough as well, otherwise denies fever, chills, headache, visual changes, stiff neck, abdominal pain, nausea, vomiting, diarrhea. No additional complaints at this time. Patient with no cardiac history. He is active in sports and exercises frequently. No history of exertional or post-exertional chest pain, palpitations or syncope. He has had several concussions in the past due to sports. Possibly a seizure when he was a small child - mother recalls him having an EEG study in the past. He also had an episode of transient visual disturbance as a child which was thought to be likely secondary to migraine. He denies recent head trauma or concussion. No headache or migraine symptoms. In the ER he is afebrile, hypertensive otherwise HD stable. Principal Diagnosis confusion Discharge Exam General: patient resting comfortably, NAD Skin: warm, dry, intact, no rashes or lesions HEENT: NC/AT Heart: +S1/S2, regular, no m/r/g Lungs: equal air entry bilaterally, Neuro: nonfocal, patient AA&O x 4, speech intact, no facial droop Discharge Data Allergies Allergy/AdvReac Type Severity Reaction Status Date / Time Penicillins Allergy Hives Verified 03/27/23 09:29 pepper (genus Capsicum) Allergy Hives Verified 03/27/23 09:30 tree nut Allergy Hives Verified 03/27/23 09:29 Consultations 03/27/23 05:54 ED Decision to Admit Stat 03/27/23 08:30 Consult Neurology Routine Ordered Studies 03/27/23 00:31 CT angio chest PE protocol Stat 03/27/23 05:21 CT head/brain wo con Stat 03/27/23 15:32 MR brain seizure wo/w con Urgent Hospital Course (1) Chest pain: 22yo male with one week of intermittent chest pain, pleuritic, but non- positional and non-exertional. Etiology unclear. Patient with normal troponin x 1, normal EKG with no ischemic changes. CTA without PE. Possibly secondary to asthma? consider possible arrhythmia, pericarditis - unlikely as no effusion noted, no EKG changes, anxiety? -Telemetry monitoring was negative. Negative Neuro workup. -Patient willl be discharged after negative MRI brain. Negative EEG. Patient will need followup with Cardiology and/or PCP Also will benefit from outpatient 30 day cardiac cath technologist. (2) Confusion: Patient with episode of confusion, does not fully recollect events prior to arrival. Possible arrhythmia, possible seizure. No history of seizure in the past. Has had multiple concussions resolved. THS noted in tox screen (3) Asthma: No cough, SOB or wheeze at present -Albuterol PRN Total Time Total Time Spent Total Time Spent (In Minutes): 32 Discharge Plan Discharge Items Patient Disposition: Home - Self-Care Reason For Visit: CONFUSION, CHEST PAIN Discharge Diagnosis: syncope Activity: Resume your previous activity Non-emergency contact: Primary Care Provider Call non-emergency contact if: you have any medication questions Follow-up/Referrals: PCP,NO [Primary Care Provider] - Diet: Regular Addtl Attending Provider Instructions: will recommend a 30 day heart monitor will recommend folloowup with [facility] in 1-2 weeks Pending Studies at Discharge: No Stand-Alone Forms: My [facility], Work/School Release, Smoking Cessation Medications and DC Order Prescriptions: Continued epinephrine 0.3 mg/0.3 mL auto-injector 0.3 ml IM UD PRN (Reason: Allergic Reaction) albuterol sulfate 90 mcg/actuation HFA aerosol inhaler 2 puff INHALATION UD PRN (Reason: Shortness Of Breath Or Wheezing) QNASL 80 mcg/actuation HFA aerosol inhaler 80 mcg INTRANASAL UD Discharge Orders: Discharge Order (Routine); Ordered 03/27/23 Ordered By: Max Sanchez Admission Data Admit Date/Time: 03/27/23 05:42 Attending Provider: Max Sanchez Admit Provider: Tasha Bustillos Primary Care Provider: PCP,NO Other Providers: Tasha Bustillos ; Jere Lorenzo. Other Interventions: Discharge Summary Assessment (RN) Last Done: 03/27/23 18:33 Coding Level of Care Code 48611 INP/OBS DISCH >30 MIN Diagnoses Chest pain R07.9 Confusion R41.0 Asthma J45.909
== END 2023-03-27 19:11 | disposition home or self-care (01) ==
LOC: ED 21:17 → EDINP 21:17 → SUATTDRO 03-27 05:42 → 2N 03-27 14:29

== ENCOUNTER 2023-04-28 20:46 | Observation (INO) ==
[2023-04-28 21:52] LABS: Albumin Globulin Ratio 1.2 (0.9-2); Albumin Level 4.3 gm/dl (3.4-5.0); Bilirubin,Total 0.4 mg/dl (0.2-1.0); Calcium 9.9 mg/dl (8.6-10.3); Creatinine Clr Calc Pharmacy 123.1 ml/min; Est GFR (African American) 94.8 ml/min; Est GFR (Non-African American) 81.8 ml/min; Globulin 3.5 gm/dl (2.5-4.0); Potassium 3.9 mmol/L (3.5-5.1); Total Protein 7.8 gm/dl (6.0-8.3)
--- NOTE | 2023-04-28 22:00 | XRay Report ---
SINGLE VIEW CHEST CLINICAL HISTORY: Atypical chest pain FINDINGS: A PA chest radiograph is compared to study dated 03/26/2023. The cardiomediastinal silhouett e is unremarkable. The lungs and pleural spaces are clear. No pneumothorax is seen. The bony thorax i s grossly intact. IMPRESSION: No active disease in the chest. ACT 112: Negative or not required by law. Electronically signed by: Anam Hernandez M.D. 04/28/2023 9:58 PM
[2023-04-28 22:04] LABS: Basophils # (auto) 0.06 K/uL (0.00-0.20); Basophils % (auto) 0.6 %; Hemoglobin 15.1 g/dl (14.0-18.0); Immature Granulocytes # (auto) 0.09 K/uL (0.01-0.20); Immature Granulocytes % (auto) 0.9 %; Lymphocytes # (auto) 2.77 K/uL (1.20-3.40); Lymphocytes % (auto) 27.8 %; Mean Corpuscular Hemoglobin 26.6 pg (25.0-34.0); Mean Corpuscular Hgb Conc 32.8 g/dL (32.0-36.0); Mean Platelet Volume 10.3 fL (9.4-12.4); Monocytes # (auto) 0.41 K/uL (0.11-0.59); Monocytes % (auto) 4.1 %; Neutrophils # (auto) 6.15 K/uL (1.40-6.50); Neutrophils % (auto) 61.6 %; Platelet Count 294 K/uL (130-400); RDW Standard Deviation 40.7 fL (36.4-46.3); Red Blood Count 5.68 M/uL (4.70-6.10); White Blood Count 9.98 K/ul (4.8-10.8)
[2023-04-28 22:30] LABS: Troponin I High Sensitivity 3.5 pg/ml (0-20)
[2023-04-28 22:39] LABS: Partial Thromboplastin Ratio 0.8; Partial Thromboplastin Time 22.8 Seconds (21.0-31.0); Prothrombin Time 10.5 Seconds (9.0-12.0)
--- NOTE | 2023-04-28 23:09 | Emergency Department Note ---
Impression & Plan Syncope and collapse, Closed head injury, Laceration of left eyebrow ED Provider Note CHIEF COMPLAINT: Syncope HISTORY OF PRESENTING ILLNESS: This 22-year-old male patient presents to the emergency department for evaluation of a syncopal episode. The patient states that he was at [employer] and had less than 1 alcoholic drink. He felt like he was going to pass out so he walked outside. He then had a syncopal episode and fell and hit his head. He has a laceration above his left eye. The patient had similar symptoms a couple weeks ago. The patient states that his head started pounding, his vision got blurry, and he knew he was going to pass out. He had no chest pain or SOB prior to the syncopal episode. He did have a headache and sweating right before he passed out. No injury or trauma before the syncopal episode. The patient states that he just feels tired right now and feels that he may have a concussion. No longer having a headache. Mild pain to the left side of his face and jaw. Tetanus shot is up to date. Denies abdominal pain, nausea, or vomiting. The patient was admitted on 03/27/2023 after episodes of chest pain and confusion. Inpatient cardiac work-up was unremarkable. CTA of the chest was negative for PE or other acute abnormalities. The patient had a negative CT scan and MRI of the brain. He also had a negative EEG. The patient is currently wearing a heart monitor that has been in place for the past 2 weeks. The patient had an ECHO that was normal as well. He has not had a stress test done though per patient. While in the protocol room, the patient had a vagal episode and became diaphoretic per nursing staff. Repeat blood pressure was 74/32 with a pulse of 32. Patient was given 1 L normal saline solution bolus in the triage protocol room and began to feel slightly better. REVIEW OF SYSTEMS: See HPI for pertinent positives and pertinent negatives. ALLERGIES: Tree nuts, PCN, Peppercorn MEDICATIONS: None PAST MEDICAL HISTORY: Prior syncopal episode, Asthma PHYSICAL EXAM: VITALS: Vitals are noted on the nurse's note and reviewed by myself. GENERAL: No acute distress, non-diaphoretic. SKIN: There is a 2.8 cm laceration to the left eyebrow area. The edges gape apart with traction. The wound is clean without foreign bodies. No active bleeding. The patient also has a few abrasions to the left side of the face that are clean without bleeding or foreign bodies. Capillary reflex less than 2 seconds. HEAD: Normocephalic. No scalp tenderness or step-offs felt. EARS:Bilateral external auditory canals clear without tragus tenderness. Bilateral tympanic membranes pearly chase without erythema or effusion. No mastoid tenderness bilaterally. No hemotympanum. No nelson sign. EYES: Pupils equal round and reactive to light and accommodation. Conjunctivae without injection, sclerae without icterus. Extraocular movements intact without pain. No nystagmus. NOSE: Patent without discharge. No sinus tenderness. No septal hematoma or bleeding. FACE: The patient is tender to palpation over the left side of the face and left side of the jaw. However, there is still full range of motion of the jaw. MOUTH: Mucous membranes moist. Pharynx without erythema or exudate. Uvula midline. Airway patent. Tongue does not deviate. No loose or chipped teeth. NECK: Supple without nuchal rigidity. Cervical spine is nontender. Full range of motion of the neck without tenderness. HEART: Regular rate and rhythm without murmurs gallops or rubs. LUNGS: Clear to auscultation bilaterally without wheezes, rales or rhonchi. No retractions or accessory muscle use. CHEST: No chest wall tenderness. ABDOMEN: Positive bowel sounds x 4. Normal tympanic percussion. Soft, nontender, without masses or organomegaly. No guarding or rebound tenderness. MUSCULOSKELETAL: No tenderness of the thoracic or lumbar spine. No tenderness with pelvic rocking. Full range of motion without tenderness to palpation in all extremities. Peripheral pulses 2+. NEURO: Patient was alert and oriented to person place and time, but appears tired on exam. Normal mental status exam, but he is slower to answer questions. Normal sensation to light and sharp touch. DIFFERENTIAL DIAGNOSIS: Differential diagnosis includes cardiac arrhythmia, GA, vasovagal syndrome, POTS, aortic stenosis, pulmonary stenosis, hypertrophic cardiomyopathy, mitral valve prolapse, prolonged QT syndrome, sick sinus syndrome, drug toxicity, tension pneumothorax, cardiopulmonary syncope, pulmonary vascular disease, basilar artery insufficiency, subclavian steal syndrome, migraine, carotid sinus syndrome, orthostatic hypotension, dehydration, hyperventilation, psychiatric causes, or others. ED COURSE AND MEDICAL DECISION MAKING: MONITOR: Continuous shuttle filler: Order was placed for continuous shuttle filler. Patient was placed on the shuttle filler and continuous pulse ox. Patient was noted to be in normal sinus rhythm at an initial rate of 66 bpm per my interpretation. EKG: EKG was interpreted by myself as normal sinus rhythm at 61 bpm with a sinus arrhythmia, but no acute ST or T wave changes. MEDICATIONS GIVEN: He was given 1 L normal saline solution bolus in triage and was given a second 1 L normal saline solution bolus once he was taken back to a room. He declined any medication for pain or nausea while in the emergency department. INTERPRETATION OF LABS: I interpreted the labs with full lab results as below in the lab section of this note. CBC was normal. Coags were normal. CMP with an elevated glucose of 122, AST 54, and ALT 69, but CMP otherwise unremarkable. Magnesium was normal. High-sensitivity troponin normal. TSH normal. Urinalysis was negative. Alcohol level was less than 10. Urine drug screen was positive for marijuana, but otherwise negative. Lyme disease IgG and IgM were negative. Lactate was normal. INTERPRETATION OF IMAGING: Imaging studies were interpreted by myself and read by radiology as per the imaging section of this note. Chest x-ray was negative for acute cardiopulmonary etiology. CT scans of the head, cervical spine, and face without contrast showed no evidence for acute intracranial abnormality, fracture, or subluxation. EXTERNAL RECORDS REVIEWED: I reviewed the patient's recent admission including his unremarkable CT scan of the head, MRI of the head, EEG, ECHO, and CTA of the chest as summarized above. CONSULTATIONS: On-call hospitalist PROCEDURES: The patient's left eyebrow laceration was repaired by Phuc Connelly. Please refer to his dictation for further details. MDM SUMMARY: The patient had a vagal episode in triage where he became diaphoretic, hypotensive, and bradycardic. The patient did feel better after 1 L normal saline solution was given. I examined the patient after he was taken back to an exam room. An IV lock was placed and labs were drawn. The patient was given a second liter of normal saline solution bolus. I reviewed the patient's past admission. The patient is currently wearing a heart monitor and cardiology can evaluate any abnormal episodes during his syncopal episode as well as his vagal episode in triage. Lactate was normal making a seizure less likely. The patient's symptoms may be secondary to vasovagal syncope, dehydration, POTS, or other etiology. The patient's work-up in the emergency department was relatively unremarkable. I had a meaningful discussion about this patient with Dr. Cartagena who agrees with my assessment and the treatment plan. We feel the patient requires admission for further monitoring and evaluation of his repeat syncopal episode without known cause. I spoke with the on-call hospitalist who agreed to admit the patient for further evaluation and treatment. Please refer to their dictation for further details. The patient's care was transferred in stable condition. DIAGNOSIS: Syncope Closed head injury Left eyebrow laceration Past Med/Surg History Medical History Asthma Surgical History History of tonsillectomy and adenoidectomy Family History Other Cancer Social History Smoking Status: Never smoker Second Hand Exposure: No; Do You Dip or Chew Tobacco: No; Tobacco Cessation Education Requested by Patient: No Hx Alcohol Use: Yes Alcohol type: beer Alcohol type Comment: weekend use Hx Substance Use: Yes Prescribed Medications: Marijuana Last Used Substance: Days (ago) Preferred Language: Maori Communication Ability: Effective Thermodynamics Engineer Required: No Beliefs That Will Affect Care: None Current Living Situation: Parent Current Living Situation Comment: with mother, at home Other Information That Helps Us Care for You: No Feels Safe at Home: Yes Safety Concerns: Feels Safe At This Time Assistive Devices: None Allergies Allergies Allergy/AdvReac Type Severity Reaction Status Date / Time tree nut Allergy Severe Anaphylaxis Verified 04/28/23 23:22 Penicillins Allergy Intermediate Hives Verified 04/28/23 23:22 pepper (genus Capsicum) Allergy Intermediate Hives Verified 04/28/23 23:22 Home Meds Home Medications Medication Instructions Recorded Confirmed albuterol sulfate 90 mcg/actuation 2 puff inhalation DIRECTED PRN 03/27/23 04/28/23 aerosol inhaler Shortness Of Breath Or Wheezing beclomethasone dipropionate 80 80 mcg intranasal DIRECTED 03/27/23 04/28/23 mcg/actuation nasal HFA inhaler (QNASL) epinephrine 0.3 mg/0.3 mL 0.3 ml IM DIRECTED PRN Allergic 03/27/23 04/28/23 injection, auto-injector Reaction Results & Data (ED) Vital Signs Vital Signs - 24 hr 04/28/23 20:57 04/28/23 21:19 04/28/23 21:19 Temperature 36.5 C Temperature Source Oral Pulse Rate 71 64 63 Pulse Rate [Bilateral] Pulse Rate from SpO2 Sensor 64 Respiratory Rate 18 15 Respiratory Effort / Characteristics Respiratory Depth Normal Blood Pressure 110/60 Blood Pressure [Right Arm] Blood Pressure Mean 76 Blood Pressure Mean [Right Arm] Pulse Oximetry 98 99 Oxygen Delivery Method Room Air Sepsis Recent Fever Within 48 Hours No Sepsis New/Unexplained Change in Mental Status N/A Sepsis Action Taken by Nursing No Action Required 04/28/23 21:20 04/28/23 21:20 04/28/23 21:30 Temperature Temperature Source Pulse Rate 69 67 Pulse Rate [Bilateral] Pulse Rate from SpO2 Sensor 68 Respiratory Rate 14 19 Respiratory Effort / Characteristics Respiratory Depth Blood Pressure 104/64 Blood Pressure [Right Arm] Blood Pressure Mean 75 Blood Pressure Mean [Right Arm] Pulse Oximetry 98 Oxygen Delivery Method Sepsis Recent Fever Within 48 Hours Sepsis New/Unexplained Change in Mental Status Sepsis Action Taken by Nursing 04/28/23 21:32 04/28/23 21:33 04/28/23 21:34 Temperature Temperature Source Pulse Rate Pulse Rate [Bilateral] 61 Pulse Rate from SpO2 Sensor Respiratory Rate 18 Respiratory Effort / Characteristics Respiratory Depth Blood Pressure Blood Pressure [Right Arm] 104/64 Blood Pressure Mean Blood Pressure Mean [Right Arm] 77 Pulse Oximetry 98 99 99 Oxygen Delivery Method Room Air Room Air Room Air Sepsis Recent Fever Within 48 Hours Sepsis New/Unexplained Change in Mental Status Sepsis Action Taken by Nursing 04/28/23 21:46 04/28/23 21:46 04/28/23 21:50 Temperature Temperature Source Pulse Rate 68 Pulse Rate [Bilateral] Pulse Rate from SpO2 Sensor 69 69 Respiratory Rate 26 H Respiratory Effort / Characteristics Respiratory Depth Blood Pressure 135/69 Blood Pressure [Right Arm] Blood Pressure Mean 78 Blood Pressure Mean [Right Arm] Pulse Oximetry 97 98 Oxygen Delivery Method Sepsis Recent Fever Within 48 Hours Sepsis New/Unexplained Change in Mental Status Sepsis Action Taken by Nursing 04/28/23 22:00 04/28/23 22:00 04/28/23 22:10 Temperature Temperature Source Pulse Rate 67 70 Pulse Rate [Bilateral] 61 Pulse Rate from SpO2 Sensor 68 70 Respiratory Rate 20 19 20 Respiratory Effort / Characteristics Respiratory Depth Blood Pressure Blood Pressure [Right Arm] 113/62 Blood Pressure Mean Blood Pressure Mean [Right Arm] 79 Pulse Oximetry 96 97 98 Oxygen Delivery Method Room Air Sepsis Recent Fever Within 48 Hours Sepsis New/Unexplained Change in Mental Status Sepsis Action Taken by Nursing 04/28/23 22:20 04/28/23 22:26 04/28/23 22:26 Temperature Temperature Source Pulse Rate 65 64 Pulse Rate [Bilateral] Pulse Rate from SpO2 Sensor 69 55 L Respiratory Rate 18 18 Respiratory Effort / Characteristics Respiratory Depth Blood Pressure 111/60 Blood Pressure [Right Arm] Blood Pressure Mean 70 Blood Pressure Mean [Right Arm] Pulse Oximetry 97 97 Oxygen Delivery Method Sepsis Recent Fever Within 48 Hours Sepsis New/Unexplained Change in Mental Status Sepsis Action Taken by Nursing 04/28/23 22:30 04/28/23 22:30 04/28/23 22:40 Temperature Temperature Source Pulse Rate 62 61 Pulse Rate [Bilateral] Pulse Rate from SpO2 Sensor 64 60 Respiratory Rate 19 17 Respiratory Effort / Characteristics Respiratory Depth Blood Pressure 113/62 Blood Pressure [Right Arm] Blood Pressure Mean 74 Blood Pressure Mean [Right Arm] Pulse Oximetry 97 96 Oxygen Delivery Method Sepsis Recent Fever Within 48 Hours Sepsis New/Unexplained Change in Mental Status Sepsis Action Taken by Nursing 04/28/23 22:50 04/28/23 23:00 04/28/23 23:00 Temperature Temperature Source Pulse Rate 57 L 60 Pulse Rate [Bilateral] Pulse Rate from SpO2 Sensor 58 L 59 L Respiratory Rate 15 16 Respiratory Effort / Characteristics Respiratory Depth Blood Pressure 116/63 Blood Pressure [Right Arm] Blood Pressure Mean 83 Blood Pressure Mean [Right Arm] Pulse Oximetry 97 96 Oxygen Delivery Method Sepsis Recent Fever Within 48 Hours Sepsis New/Unexplained Change in Mental Status Sepsis Action Taken by Nursing 04/28/23 23:10 04/28/23 23:20 04/28/23 23:30 Temperature Temperature Source Pulse Rate 57 L 61 59 L Pulse Rate [Bilateral] Pulse Rate from SpO2 Sensor 58 L 62 59 L Respiratory Rate 16 17 18 Respiratory Effort / Characteristics Respiratory Depth Blood Pressure Blood Pressure [Right Arm] Blood Pressure Mean Blood Pressure Mean [Right Arm] Pulse Oximetry 97 96 97 Oxygen Delivery Method Sepsis Recent Fever Within 48 Hours Sepsis New/Unexplained Change in Mental Status Sepsis Action Taken by Nursing 04/28/23 23:30 04/28/23 23:40 04/28/23 23:50 Temperature Temperature Source Pulse Rate 72 65 Pulse Rate [Bilateral] Pulse Rate from SpO2 Sensor 74 66 Respiratory Rate 19 22 Respiratory Effort / Characteristics Respiratory Depth Blood Pressure 110/62 Blood Pressure [Right Arm] Blood Pressure Mean 80 Blood Pressure Mean [Right Arm] Pulse Oximetry 99 97 Oxygen Delivery Method Sepsis Recent Fever Within 48 Hours Sepsis New/Unexplained Change in Mental Status Sepsis Action Taken by Nursing 04/29/23 00:00 04/29/23 00:00 04/29/23 00:00 Temperature Temperature Source Pulse Rate 71 Pulse Rate [Bilateral] Pulse Rate from SpO2 Sensor 72 Respiratory Rate 20 Respiratory Effort / Characteristics Non-Labored Respiratory Depth Normal Blood Pressure 129/70 Blood Pressure [Right Arm] Blood Pressure Mean 92 Blood Pressure Mean [Right Arm] Pulse Oximetry 99 Oxygen Delivery Method Sepsis Recent Fever Within 48 Hours Sepsis New/Unexplained Change in Mental Status Sepsis Action Taken by Nursing 04/29/23 00:10 04/29/23 00:20 04/29/23 00:30 Temperature Temperature Source Pulse Rate 70 66 Pulse Rate [Bilateral] Pulse Rate from SpO2 Sensor 71 68 Respiratory Rate 14 15 Respiratory Effort / Characteristics Respiratory Depth Blood Pressure 139/76 Blood Pressure [Right Arm] Blood Pressure Mean 88 Blood Pressure Mean [Right Arm] Pulse Oximetry 98 99 Oxygen Delivery Method Sepsis Recent Fever Within 48 Hours Sepsis New/Unexplained Change in Mental Status Sepsis Action Taken by Nursing 04/29/23 00:30 04/29/23 00:40 04/29/23 00:50 Temperature Temperature Source Pulse Rate 74 63 63 Pulse Rate [Bilateral] Pulse Rate from SpO2 Sensor 71 67 62 Respiratory Rate 18 17 26 H Respiratory Effort / Characteristics Respiratory Depth Blood Pressure Blood Pressure [Right Arm] Blood Pressure Mean Blood Pressure Mean [Right Arm] Pulse Oximetry 97 97 97 Oxygen Delivery Method Sepsis Recent Fever Within 48 Hours Sepsis New/Unexplained Change in Mental Status Sepsis Action Taken by Nursing 04/29/23 01:00 04/29/23 01:00 04/29/23 01:10 Temperature Temperature Source Pulse Rate 58 L 57 L Pulse Rate [Bilateral] Pulse Rate from SpO2 Sensor 58 L 57 L Respiratory Rate 18 16 Respiratory Effort / Characteristics Respiratory Depth Blood Pressure 116/63 Blood Pressure [Right Arm] Blood Pressure Mean 78 Blood Pressure Mean [Right Arm] Pulse Oximetry 97 96 Oxygen Delivery Method Sepsis Recent Fever Within 48 Hours Sepsis New/Unexplained Change in Mental Status Sepsis Action Taken by Nursing 04/29/23 01:20 04/29/23 01:20 04/29/23 01:30 Temperature Temperature Source Pulse Rate 59 L 56 L Pulse Rate [Bilateral] Pulse Rate from SpO2 Sensor 56 L Respiratory Rate 16 Respiratory Effort / Characteristics Respiratory Depth Blood Pressure 121/63 Blood Pressure [Right Arm] Blood Pressure Mean 85 Blood Pressure Mean [Right Arm] Pulse Oximetry 96 Oxygen Delivery Method Sepsis Recent Fever Within 48 Hours Sepsis New/Unexplained Change in Mental Status Sepsis Action Taken by Nursing 04/29/23 01:30 04/29/23 01:40 04/29/23 01:50 Temperature Temperature Source Pulse Rate 60 73 58 L Pulse Rate [Bilateral] Pulse Rate from SpO2 Sensor 60 73 57 L Respiratory Rate 17 18 21 Respiratory Effort / Characteristics Respiratory Depth Blood Pressure Blood Pressure [Right Arm] Blood Pressure Mean Blood Pressure Mean [Right Arm] Pulse Oximetry 97 97 97 Oxygen Delivery Method Sepsis Recent Fever Within 48 Hours Sepsis New/Unexplained Change in Mental Status Sepsis Action Taken by Nursing Laboratory Data 04/28/23 21:22 04/28/23 21:22 Lab Results 04/28/23 04/28/23 04/29/23 Range/Units 21:22 23:47 00:05 WBC 9.98 (4.8-10.8) K/ul RBC 5.68 (4.70-6.10) M/uL Hgb 15.1 (14.0-18.0) g/dl Hct 46.0 (42.0-52.0) % MCV 81.0 (80.0-100.0) fL MCH 26.6 (25.0-34.0) pg MCHC 32.8 (32.0-36.0) g/dL RDW Std Deviation 40.7 (36.4-46.3) fL RDW Coeff of Maik 14.0 (11.5-14.5) % Plt Count 294 (130-400) K/uL MPV 10.3 (9.4-12.4) fL Immature Gran % (Auto) 0.9 % Neut % (Auto) 61.6 % Lymph % (Auto) 27.8 % [place] % (Auto) 4.1 % Eos % (Auto) 5.0 % Baso % (Auto) 0.6 % Neut # (Auto) 6.15 (1.40-6.50) K/uL Lymph # (Auto) 2.77 (1.20-3.40) K/uL [place] # (Auto) 0.41 (0.11-0.59) K/uL Eos # (Auto) 0.50 (0.00-0.50) K/uL Baso # (Auto) 0.06 (0.00-0.20) K/uL Immature Gran # (Auto) 0.09 (0.01-0.20) K/uL PT 10.5 (9.0-12.0) Seconds INR 1.0 (0.9-1.1) APTT 22.8 (21.0-31.0) Seconds PTT Ratio 0.8 Sodium 136 (136-145) mmol/L Potassium 3.9 (3.5-5.1) mmol/L Chloride 101 (98-107) mmol/L Carbon Dioxide 26 (21-32) mmol/L Anion Gap 9 (3-11) BUN 20 (6-23) mg/dl Creatinine 1.25 (0.6-1.4) mg/dl Est Cr Clr Drug Dosing 123.1 ml/min Est GFR ( Amer) 94.8 ml/min Est GFR (Non-Af Amer) 81.8 ml/min BUN/Creatinine Ratio 16.0 (10-20) Glucose 122 H (70-99(Fasting)) mg/dl Lactate 1.4 (0.4-2.0) mmol/L Calcium 9.9 (8.6-10.3) mg/dl Magnesium 1.9 (1.7-2.4) mg/dl Total Bilirubin 0.4 (0.2-1.0) mg/dl AST 54 H (13-39) U/L ALT 69 H (7-52) U/L Alkaline Phosphatase 62 (34-104) U/L Troponin I High Sens 3.5 (0-20) pg/ml Total Protein 7.8 (6.0-8.3) gm/dl Albumin 4.3 (3.4-5.0) gm/dl Globulin 3.5 (2.5-4.0) gm/dl Albumin/Globulin Ratio 1.2 (0.9-2) TSH 1.636 (0.300-4.500) uIu/ml Ethyl Alcohol mg/dL < 10.0 (<10.0) mg/dl Lyme Disease IgG Ab Negative (Negative) Lyme Disease IgM Ab Negative (Negative) Administered Medications Miscellaneous (Qnasl - Order Awaiting Action) 1 each N/A QS JUVE Stop: 05/29/23 07:59 Last Admin: 04/29/23 16:23 Dose: Not Given Documented By: Admin: 04/29/23 07:03 Dose: Not Given Documented By: FAY Discontinued Medications Sodium Chloride (Nss) 1,000 mls @ 999 mls/hr IV .Q1H1M ONE Stop: 04/29/23 02:10 Last Infusion: 04/29/23 05:34 Dose: Infused Documented By: Admin: 04/29/23 01:27 Dose: 999 mls/hr Documented By: MICHAEL Potassium Chloride/Sodium Chloride (Normal Saline W/20 Meq Kcl) 20 meq in 1,000 mls @ 200 mls/hr IV .Q5H JUVE Stop: 04/29/23 09:16 Last Infusion: 04/29/23 10:01 Dose: Infused Documented By: Admin: 04/29/23 05:00 Dose: 200 mls/hr Documented By: MICHAEL Lidocaine/Epinephrine (Lido/Epinephrine/Sod Bicarb 50 Ml Vial) 5 ml INFIL NOW ONE Stop: 04/28/23 23:43 Last Admin: 04/29/23 00:14 Dose: 5 ml Documented By: MICHAEL Imaging Data Radiologist's Impression: Chest X-Ray 04/28/23 21:00 SINGLE VIEW CHEST CLINICAL HISTORY: Atypical chest pain FINDINGS: A PA chest radiograph is compared to study dated 03/26/2023. The cardiomediastinal silhouette is unremarkable. The lungs and pleural spaces are clear. No pneumothorax is seen. The bony thorax is grossly intact. IMPRESSION: No active disease in the chest. ACT 112: Negative or not required by law. Electronically signed by: Anam Hernandez M.D. 04/28/2023 9:[address] 04/28/23 21:02 Exam(s): CT C SPINE EXAM: CT Cervical Spine Without Intravenous Contrast CLINICAL HISTORY: Reason for exam: syncope. TECHNIQUE: Axial computed tomography images of the cervical spine without intravenous contrast. CTDI is 26.96 mGy and DLP is 805.84 mGy-cm. Automated exposure control was utilized for the study. A dose lowering technique was utilized adhering to the principles of ALARA. COMPARISON: No relevant prior studies available. FINDINGS: Vertebrae: Unremarkable. No acute fracture. Discs/spinal canal/neural foramina: No acute findings. No spinal canal stenosis. Soft tissues: Prominent cervical lymph nodes. IMPRESSION: No evidence of acute cervical spine pathology. Electronically signed by: Stephanie Knott MD 04/28/23 23:[address] 04/28/23 21:02 Exam(s): CT FACIAL Without Contrast EXAM: CT Head and Maxillofacial Without Intravenous Contrast CLINICAL HISTORY: Reason for exam: syncope. TECHNIQUE: Axial computed tomography images of the head/brain and face without intravenous contrast. CTDI is 36.55 mGy and DLP is 546.36 mGy-cm. Automated exposure control was utilized for the study. A dose lowering technique was utilized adhering to the principles of ALARA. COMPARISON: No relevant prior studies available. FINDINGS: Bones/joints: No acute fracture. Soft tissues: Prominent cervical lymph nodes. Sinuses: Chronic right maxillary sinusitis. No acute sinusitis. Mastoid air cells: Unremarkable as visualized. No mastoid effusion. Orbits: Unremarkable as visualized. IMPRESSION: No evidence of acute facial bone pathology. Electronically signed by: Stephanie Knott MD 04/28/23 23:[address] 04/28/23 21:02 Exam(s): CT HEAD Without Contrast EXAM: CT Head Without Intravenous Contrast CLINICAL HISTORY: Reason for exam: syncope. TECHNIQUE: Axial computed tomography images of the head/brain without intravenous contrast. CTDI is 36.55 mGy and DLP is 546.36 mGy-cm. Automated exposure control was utilized for the study. A dose lowering technique was utilized adhering to the principles of ALARA. COMPARISON: Comparison made to prior brain MRI from March 27, 2023. FINDINGS: Brain: Unremarkable. No hemorrhage. No significant white matter disease. No edema. Ventricles: Unremarkable. No ventriculomegaly. Bones/joints: Unremarkable. No acute fracture. Soft tissues: Unremarkable. Sinuses: Unremarkable as visualized. No acute sinusitis. Mastoid air cells: Unremarkable as visualized. No mastoid effusion. IMPRESSION: No evidence of acute intracranial pathology. Electronically signed by: Stephanie Knott MD 04/28/23 23:22 PM Discharge Plan Visit Data Chief Complaint: Syncope Stated Complaint: SYNCOPE, ONE DRINK ED Provider: Jere Cartagena ED Midlevel Provider: Irasema Terrell Discharge Problem: Syncope and collapse, Closed head injury, Laceration of left eyebrow Patient Disposition: Admitted As Inpatient Condition: Good Discharge Instructions Interventions: ED Discharge Assessment Last Done: 04/29/23 04:17 Discharge Problem: Closed head injury Qualifiers: Encounter type: initial encounter Qualified Code(s): S09.90XA - Unspecified injury of head, initial encounter Laceration of left eyebrow Qualifiers: Encounter type: initial encounter Qualified Code(s): S01.112A - Laceration without foreign body of left eyelid and periocular area, initial encounter
--- NOTE | 2023-04-28 23:16 | CT Scan Report ---
Exam(s): CT C SPINE EXAM: CT Cervical Spine Without Intravenous Contrast CLINICAL HISTORY: Reason for exam: syncope. TECHNIQUE: Axial computed tomography images of the cervical spine without intravenous contrast. CTDI is 26.96 mGy and DLP is 805.84 mGy-cm. Automated exposure control was utilized for the study. A dose lowering technique was utilized adhering to the principles of ALARA. COMPARISON: No relevant prior studies available. FINDINGS: Vertebrae: Unremarkable. No acute fracture. Discs/spinal canal/neural foramina: No acute findings. No spinal canal stenosis. Soft tissues: Prominent cervical lymph nodes. IMPRESSION: No evidence of acute cervical spine pathology. Electronically signed by: Stephanie Knott MD 04/28/23 23:16 PM
--- NOTE | 2023-04-28 23:20 | CT Scan Report ---
Exam(s): CT FACIAL Without Contrast EXAM: CT Head and Maxillofacial Without Intravenous Contrast CLINICAL HISTORY: Reason for exam: syncope. TECHNIQUE: Axial computed tomography images of the head/brain and face without intravenous contrast. CTDI is 36.55 mGy and DLP is 546.36 mGy-cm. Automated exposure control was utilized for the study. A dose lowering technique was utilized adhering to the principles of ALARA. COMPARISON: No relevant prior studies available. FINDINGS: Bones/joints: No acute fracture. Soft tissues: Prominent cervical lymph nodes. Sinuses: Chronic right maxillary sinusitis. No acute sinusitis. Mastoid air cells: Unremarkable as visualized. No mastoid effusion. Orbits: Unremarkable as visualized. IMPRESSION: No evidence of acute facial bone pathology. Electronically signed by: Stephanie Knott MD 04/28/23 23:19 PM
--- NOTE | 2023-04-28 23:23 | CT Scan Report ---
Exam(s): CT HEAD Without Contrast EXAM: CT Head Without Intravenous Contrast CLINICAL HISTORY: Reason for exam: syncope. TECHNIQUE: Axial computed tomography images of the head/brain without intravenous contrast. CTDI is 36.55 mGy and DLP is 546.36 mGy-cm. Automated exposure control was utilized for the study. A dose lowering technique was utilized adhering to the principles of ALARA. COMPARISON: Comparison made to prior brain MRI from March 27, 2023. FINDINGS: Brain: Unremarkable. No hemorrhage. No significant white matter disease. No edema. Ventricles: Unremarkable. No ventriculomegaly. Bones/joints: Unremarkable. No acute fracture. Soft tissues: Unremarkable. Sinuses: Unremarkable as visualized. No acute sinusitis. Mastoid air cells: Unremarkable as visualized. No mastoid effusion. IMPRESSION: No evidence of acute intracranial pathology. Electronically signed by: Stephanie Knott MD 04/28/23 23:22 PM
[2023-04-28] MEDS ORDERED: LIDO/EPINEPHRINE/SOD BICARB 50 ML VIAL INFIL ONE (23:42)
[2023-04-29 00:45] LABS: Magnesium 1.9 mg/dl (1.7-2.4)
--- NOTE | 2023-04-29 00:45 | Emergency Department Note ---
ED Visit Note Patient was seen and evaluated at the request of my colleague, Luly Terrell PA-C, for evaluation of a left eyebrow laceration. Please see MsEmily Terrell's dictation for full history of present illness and emergency department course outside of this repair. On examination the patient has a roughly 2.8 cm curvilinear laceration underneath the lateral aspect of the left eyebrow. This does gape and will require repair. Laceration repair. Patient elects to have their laceration repaired. Verbal consent was obtained to perform the procedure. There is an abundance of materials available for the procedure. Patient is not allergic to latex. Using sterile technique the wound was cleaned with Betadine. The area was sterilely draped. 4 ml of 1% buffered lidocaine was used to anesthetize the left eyebrow laceration. Once the patient was anesthetized, the wound was copiously irrigated under pressure with sterile saline. The wound was explored and there were no deep structures injured such as tendons, bone, or significant blood vessels. The laceration was repaired using 5 simple interrupted 6-0 nylon sutures with the wound edges being well approximated. Hemostasis was achieved. The area was cleaned with sterile saline and dressed with bacitracin ointment and bandage. Patient tolerated the procedure well without complications. Blood loss was negligible. .
[2023-04-29 00:57] LABS: Lyme Ab IgG w/WB Rflx Negative (Negative); Lyme Ab IgM w/WB Rflx Negative (Negative)
[2023-04-29 01:00] LABS: Thyroid Stimulating Hormone 1.636 uIu/ml (0.300-4.500)
[2023-04-29] MEDS ORDERED: SODIUM CHLORIDE 0.9% 1,000 ML IV ONE (01:10)
--- NOTE | 2023-04-29 02:06 | History & Physical Report ---
Date of Service April 29, 2023 Assessment & Plan (1) Syncope and collapse: (2) Asthma: Plan Syncope and collapse- The patient will be admitted to telemetry for serial cardiac enzymes, serial EKG's, cardiac rhythm monitoring Patient did have echocardiogram performed on 03/27/2023 which was normal He did have a monitor placed by cardiology, which will be assessed when the cardiology sees him Symptoms are suggestive of some type of autonomic this regulatory syndrome, such as POTS Alcohol level is negative, LE did have about 1/2 drink today When is admitted on 03/27, he was positive for marijuana, and was advised to avoid marijuana smoking as well We will check orthostatic vital signs We will leave it to cardiology to determine if a tilt table test would be of value Testing for adrenal insufficiency could be considered Asthma/allergy Continue usual inhalers of Qnasl and albuterol sulfate HFA as needed Referral to signs sales representative for testing not just for allergies, but for any related syndromes should be considered History of Present Illness Chief Complaint: The patient presents to the emergency department after a syncopal episode while at [facility], reporting that he did not even have a full drink, he felt like he was going to pass out, and walked outside, and then he fell forward as he lost consciousness, and sustained a facial laceration. He had a similar episode about 2 weeks ago. He was admitted to [facility] on 03/27/2023 for episode of chest pain and confusion, that was self-limited. At that time he had a full work-up including CT of head, CTA chest, brain MRI and chest x-ray. Work-up in the emergency department today includes normal CT head, CT face, CT cervical spine and chest x-ray. CBC with differential and chemistry profile are only significant for AST 56 and ALT 69. EKG shows normal sinus rhythm with no acute changes Primary Care Provider: [facility] The patient is a 22-year-old male with history of asthma and allergy, who presents to the emergency department with symptoms as noted above. He reports there is no family history of seizures or other neurologic or cardiac symptoms similar to his. He denies loss of bowel or bladder control, and has not had any recent signs of infection including respiratory, abdominal or urinary. Allergies Allergy/AdvReac Type Severity Reaction Status Date / Time tree nut Allergy Severe Anaphylaxis Verified 04/28/23 23:22 Penicillins Allergy Intermediate Hives Verified 04/28/23 23:22 pepper (genus Capsicum) Allergy Intermediate Hives Verified 04/28/23 23:22 Home Medications Medication Instructions Recorded Confirmed Type albuterol sulfate 90 mcg/actuation 2 puff inhalation DIRECTED PRN 03/27/23 04/28/23 History aerosol inhaler Shortness Of Breath Or Wheezing beclomethasone dipropionate 80 80 mcg intranasal DIRECTED 03/27/23 04/28/23 History mcg/actuation nasal HFA inhaler (QNASL) epinephrine 0.3 mg/0.3 mL 0.3 ml IM DIRECTED PRN Allergic 03/27/23 04/28/23 History injection, auto-injector Reaction Past Med/Surg History Medical History Asthma Surgical History History of tonsillectomy and adenoidectomy Family History Other Cancer Social History Smoking Status: Never smoker Do You Dip or Chew Tobacco: No; Hx Alcohol Use: Yes Alcohol type: beer Alcohol type Comment: weekend use Hx Substance Use: Yes Prescribed Medications: Marijuana Preferred Language: Salvadorean Communication Ability: Effective Consultant In Ergonomics And Safety Required: No Beliefs That Will Affect Care: None Current Living Situation: Other Feels Safe at Home: Yes Review of Systems Review of Systems: The patient denies chest pain, palpitations, shortness of breath, dyspnea on exertion, cough, lower extremity swelling, sore throat, fevers, chills, sweats, weight change, nausea, vomiting, diarrhea , constipation, abdominal pain, pelvic pain, blood in urine or stool, dysuria, urinary frequency or urgency, rash, abnormal bruising or bleeding, imbalance, focal or generalized weakness, numbness or tingling in arms or legs, generalized arthralgias or myalgias, neck pain, or night sweats. The review of systems is otherwise negative other than for that already noted above, and at least 10 systems have been reviewed. Physical Exam Physical Exam: The patient is awake, alert and oriented 3, well developed and well nourished, normocephalic and atraumatic, lying in bed and in no acute distress. HEENT--PERRL, EOMI, mucous membranes and oropharynx mildly dry. Neck--supple. No JVD. No bruits. Thyroid normal, trachea midline, no adenopathy. Heart--normal S1 and S2. No murmurs, rubs or gallops. Lungs--clear bilaterally, no respiratory distress, no accessory muscle use. Abdomen--normal bowel sounds and soft. Nontender. Nondistended, no hernias or masses, no organomegaly. Extremities--no cyanosis or clubbing. No edema. Dermatologic--normal skin turgor, normal color, no abnormal lymph nodes, no rash. Neurologic--cranial nerves II through XII grossly intact. Rheumatologic--normal range of motion. Psychiatric--normal affect. Results & Data Results & Data Vital Signs (Past 12 Hours) Vital Signs Temp Pulse Pulse Resp BP BP Pulse Ox 04/29/23 01:20 59 L 04/29/23 00:10 70 14 98 04/29/23 00:00 71 20 99 04/29/23 00:00 129/70 04/28/23 23:50 65 22 97 04/28/23 23:40 72 19 99 04/28/23 23:30 110/62 04/28/23 23:30 59 L 18 97 04/28/23 23:20 61 17 96 04/28/23 23:10 57 L 16 97 04/28/23 23:00 60 16 96 04/28/23 23:00 116/63 04/28/23 22:50 57 L 15 97 04/28/23 22:40 61 17 96 04/28/23 22:30 62 19 97 04/28/23 22:30 113/62 04/28/23 22:26 111/60 04/28/23 22:26 64 18 97 04/28/23 22:20 65 18 97 04/28/23 22:10 70 20 98 04/28/23 22:00 67 19 97 04/28/23 22:00 61 20 113/62 96 04/28/23 21:50 68 26 H 98 04/28/23 21:46 135/69 04/28/23 21:46 97 04/28/23 21:34 99 04/28/23 21:33 61 18 104/64 99 04/28/23 21:32 98 04/28/23 21:30 67 19 98 04/28/23 21:20 104/64 04/28/23 21:20 69 14 04/28/23 21:19 63 15 99 04/28/23 21:19 64 04/28/23 20:57 36.5 C 71 18 110/60 98 O2 Del Method 04/29/23 01:20 04/29/23 00:10 04/29/23 00:00 04/29/23 00:00 04/28/23 23:50 04/28/23 23:40 04/28/23 23:30 04/28/23 23:30 04/28/23 23:20 04/28/23 23:10 04/28/23 23:00 04/28/23 23:00 04/28/23 22:50 04/28/23 22:40 04/28/23 22:30 04/28/23 22:30 04/28/23 22:26 04/28/23 22:26 04/28/23 22:20 04/28/23 22:10 04/28/23 22:00 04/28/23 22:00 Room Air 04/28/23 21:50 04/28/23 21:46 04/28/23 21:46 04/28/23 21:34 Room Air 04/28/23 21:33 Room Air 04/28/23 21:32 Room Air 04/28/23 21:30 04/28/23 21:20 04/28/23 21:20 04/28/23 21:19 04/28/23 21:19 04/28/23 20:57 Room Air Laboratory Results Laboratory Results WBC 9.98 K/ul (4.8-10.8) 04/28/23 21:22 RBC 5.68 M/uL (4.70-6.10) 04/28/23 21:22 Hgb 15.1 g/dl (14.0-18.0) 04/28/23 21:22 Hct 46.0 % (42.0-52.0) 04/28/23 21:22 MCV 81.0 fL (80.0-100.0) 04/28/23 21:22 MCH 26.6 pg (25.0-34.0) 04/28/23 21: MCHC 32.8 g/dL (32.0-36.0) 04/28/23 21: RDW Std Deviation 40.7 fL (36.4-46.3) 04/28/23 21: RDW Coeff of Maik 14.0 % (11.5-14.5) 04/28/23 21: Plt Count 294 K/uL (130-400) 04/28/23 21: MPV 10.3 fL (9.4-12.4) 04/28/23 21: Immature Gran % (Auto) 0.9 % 04/28/23: Neut % (Auto) 61.6 % 04/28/23: Lymph % (Auto) 27.8 % 04/28/23 21: Mcdonald % (Auto) 4.1 % 04/28/23: Eos % (Auto) 5.0 % 04/28/23: Baso % (Auto) 0.6 % 04/28/23 21: Neut # (Auto) 6.15 K/uL (1.40-6.50) 04/28/23 21: Lymph # (Auto) 2.77 K/uL (1.20-3.40) 04/28/23 21: Mcdonald # (Auto) 0.41 K/uL (0.11-0.59) 04/28/23 21: Eos # (Auto) 0.50 K/uL (0.00-0.50) 04/28/23 21: Baso # (Auto) 0.06 K/uL (0.00-0.20) 04/28/23 21: Immature Gran # (Auto) 0.09 K/uL (0.01-0.20) 04/28/23: PT 10.5 Seconds (9.0-12.0) 04/28/23: INR 1.0 (0.9-1.1) 04/28/23: APTT 22.8 Seconds (21.0-31.0) 04/28/23: PTT Ratio 0.8 04/28/23 21: Sodium 136 mmol/L (136-145) 04/28/23 21:22 Potassium 3.9 mmol/L (3.5-5.1) 04/28/23 21:22 Chloride 101 mmol/L (98-107) 04/28/23 21:22 Carbon Dioxide 26 mmol/L (21-32) 04/28/23 21:22 Anion Gap 9 (3-11) 04/28/23 21:22 BUN 20 mg/dl (6-23) 04/28/23 21:22 Creatinine 1.25 mg/dl (0.6-1.4) 04/28/23 21:22 Est Cr Clr Drug Dosing 123.1 ml/min 04/28/23 21:22 Est GFR ( Amer) 94.8 ml/min 04/28/23 21:22 Est GFR (Non-Af Amer) 81.8 ml/min 04/28/23 21:22 BUN/Creatinine Ratio 16.0 (10-20) 04/28/23 21:22 Glucose 122 mg/dl (70-99(Fasting)) H 04/28/23 21:22 Lactate 1.4 mmol/L (0.4-2.0) 04/29/23 00:05 Calcium 9.9 mg/dl (8.6-10.3) 04/28/23 21:22 Magnesium 1.9 mg/dl (1.7-2.4) 04/28/23 23:47 Total Bilirubin 0.4 mg/dl (0.2-1.0) 04/28/23 21:22 AST 54 U/L (13-39) H 04/28/23 21:22 ALT 69 U/L (7-52) H 04/28/23 21:22 Alkaline Phosphatase 62 U/L (34-104) 04/28/23 21:22 Troponin I High Sens 3.5 pg/ml (0-20) 04/28/23 21:22 Total Protein 7.8 gm/dl (6.0-8.3) 04/28/23 21:22 Albumin 4.3 gm/dl (3.4-5.0) 04/28/23 21:22 Globulin 3.5 gm/dl (2.5-4.0) 04/28/23 21:22 Albumin/Globulin Ratio 1.2 (0.9-2) 11/07/23 21:22 TSH 1.636 uIu/ml (0.300-4.500) 04/28/23 23:47 Ethyl Alcohol mg/dL < 10.0 mg/dl (<10.0) 04/29/23 00:05 Lyme Disease IgG Ab Negative (Negative) 04/28/23 23:47 Lyme Disease IgM Ab Negative (Negative) 04/28/23 23:47 Impressions Chest X-Ray 04/28/23 21:00 SINGLE VIEW CHEST CLINICAL HISTORY: Atypical chest pain FINDINGS: A PA chest radiograph is compared to study dated 03/26/2023. The cardiomediastinal silhouette is unremarkable. The lungs and pleural spaces are clear. No pneumothorax is seen. The bony thorax is grossly intact. IMPRESSION: No active disease in the chest. ACT 112: Negative or not required by law. Electronically signed by: Anam Hernandez M.D. 04/28/2023 9:[address] 04/28/23 21:02 Exam(s): CT C SPINE EXAM: CT Cervical Spine Without Intravenous Contrast CLINICAL HISTORY: Reason for exam: syncope. TECHNIQUE: Axial computed tomography images of the cervical spine without intravenous contrast. CTDI is 26.96 mGy and DLP is 805.84 mGy-cm. Automated exposure control was utilized for the study. A dose lowering technique was utilized adhering to the principles of ALARA. COMPARISON: No relevant prior studies available. FINDINGS: Vertebrae: Unremarkable. No acute fracture. Discs/spinal canal/neural foramina: No acute findings. No spinal canal stenosis. Soft tissues: Prominent cervical lymph nodes. IMPRESSION: No evidence of acute cervical spine pathology. Electronically signed by: Stephanie Knott MD 04/28/23 23:[address] 04/28/23 21:02 Exam(s): CT FACIAL Without Contrast EXAM: CT Head and Maxillofacial Without Intravenous Contrast CLINICAL HISTORY: Reason for exam: syncope. TECHNIQUE: Axial computed tomography images of the head/brain and face without intravenous contrast. CTDI is 36.55 mGy and DLP is 546.36 mGy-cm. Automated exposure control was utilized for the study. A dose lowering technique was utilized adhering to the principles of ALARA. COMPARISON: No relevant prior studies available. FINDINGS: Bones/joints: No acute fracture. Soft tissues: Prominent cervical lymph nodes. Sinuses: Chronic right maxillary sinusitis. No acute sinusitis. Mastoid air cells: Unremarkable as visualized. No mastoid effusion. Orbits: Unremarkable as visualized. IMPRESSION: No evidence of acute facial bone pathology. Electronically signed by: Stephanie Knott MD 04/28/23 23:[address] 04/28/23 21:02 Exam(s): CT HEAD Without Contrast EXAM: CT Head Without Intravenous Contrast CLINICAL HISTORY: Reason for exam: syncope. TECHNIQUE: Axial computed tomography images of the head/brain without intravenous contrast. CTDI is 36.55 mGy and DLP is 546.36 mGy-cm. Automated exposure control was utilized for the study. A dose lowering technique was utilized adhering to the principles of ALARA. COMPARISON: Comparison made to prior brain MRI from March 27, 2023. FINDINGS: Brain: Unremarkable. No hemorrhage. No significant white matter disease. No edema. Ventricles: Unremarkable. No ventriculomegaly. Bones/joints: Unremarkable. No acute fracture. Soft tissues: Unremarkable. Sinuses: Unremarkable as visualized. No acute sinusitis. Mastoid air cells: Unremarkable as visualized. No mastoid effusion. IMPRESSION: No evidence of acute intracranial pathology. Electronically signed by: Stephanie Knott MD 04/28/23 23:22 PM Code Status & VTE Plan Code Status Full code VTE Prophylaxis Plan VTE Prophylaxis will be ordered: Yes PG Care Time/CCT Total # of Minutes Spent Total Time Spent with Patient: Total time spent is greater than 50% in coordination of care (as documented) at patient's floor/unit and/or counseling patient: Coding Level of Care Code 88408 INT INP/OBS CARE 3/75MIN Diagnoses Syncope and collapse R55 Asthma J45.909
[2023-04-29] MEDS ORDERED: NSS + 20MEQ KCL 20 MEQ/1,000 ML BAG IV SCH (04:17)
[2023-04-29] MEDS ORDERED: ONDANSETRON INJ 2 MG/ML 2 ML VIAL IV PRN (04:17)
[2023-04-29] MEDS ORDERED: ALBUTEROL HFA 8 GM INHALER INH PRN (04:17)
[2023-04-29] MEDS ORDERED: ACETAMINOPHEN 325 MG TAB PO PRN (04:17)
--- NOTE | 2023-04-29 07:49 | Hospitalist Progress Note ---
Date of Service April 29, 2023 Assessment & Plan (1) Syncope and collapse: (2) Asthma: Plan Pt is a 22 yo male with a past medical history of migraines and asthma who presents to the hospital on 04/29/23 for syncope. Syncope and collapse - no symptoms since admission, has felt fine - echocardiogram on 03/27/2023 was wnl - has a monitor that was placed by cardiology, which will be assessed when the cardiology sees him - Symptoms are suggestive of some type of autonomic this regulatory syndrome, such as POTS - We will check orthostatic vital signs; - We will leave it to cardiology to determine if a tilt table test would be of value - cardiology consulted, awaiting recommendations - Testing for adrenal insufficiency could be considered if cardiac workup negative Asthma/allergy - continue usual inhalers of Qnasl and albuterol sulfate HFA as needed - Referral to general doc for testing not just for allergies, but for any related syndromes should be considered Admission and Anticipated Discharge Date Admission Date: April 29, 2023 Subjective Pt is a 22 yo male with a past medical history of migraines and asthma who presents to the hospital on 04/29/23 for syncope. Pt notes that he was at [employer] last night and had maybe a half of an alcoholic beverage before he said that he felt like he was going to pass out. He states he had been standing at the bar for awhile when he got a pounding sensation in his head and started to feel his heart racing. He states that lasted for about 3 minutes before he got tunnel vision and passed out, falling and striking his face on the ground. He states he had a similar episode 2 weeks ago when he got out of the shower, had felt like his heart was racing for 3 minutes or so, then passed out then as well. He denies any drug use aside from occasional marijuana. No preceding chest pain, SOB, nausea, vomiting, or tinnitus with the episodes. He has played sports in the past without issue. He notes that his mother has POTS. Today, he states he feels fine, is just anxious to figure out why this has now happened to him twice. No chest pain, SOB, or palpitations currently. No issues with bowel or bladder incontinence. No further questions or complaints at this time. Review of Systems Review of Systems: Per HPI. Physical Exam Physical Exam: General:Alert and oriented, no acute distress, HEENT: Normocephalic, moist oral mucosa, Cardio: Regular rate and rhythm, no murmur, Resp:Lungs clear to auscultation b/l, no wheezes or rhonchi, GI: Soft and nontender, nondistended, bowel sounds active Skin: Warm, pink, dry, Psych: Mood-affect congruence. Results & Data Results & Data Vital Signs (Past 12 Hours) Vital Signs Temp Pulse Pulse Resp BP BP Pulse Ox 04/29/23 06:20 74 12 98 04/29/23 06:10 45 L 13 97 04/29/23 06:00 04/29/23 06:00 49 L 14 97 04/29/23 06:00 112/74 04/29/23 05:50 50 L 12 97 04/29/23 05:40 46 L 13 97 04/29/23 05:30 111/61 04/29/23 05:30 49 L 17 97 04/29/23 05:24 37.1 C 50 L 14 123/76 98 04/29/23 05:23 04/29/23 05:20 47 L 18 97 04/29/23 05:10 49 L 13 97 04/29/23 05:00 123/76 04/29/23 05:00 50 L 15 97 04/29/23 05:00 49 L 16 123/76 98 04/29/23 05:00 04/29/23 04:50 48 L 14 98 04/29/23 04:40 51 L 13 97 04/29/23 04:30 51 L 15 97 04/29/23 04:30 130/77 04/29/23 04:20 52 L 13 96 04/29/23 04:10 56 L 17 96 04/29/23 04:00 52 L 14 97 04/29/23 04:00 105/69 04/29/23 03:50 50 L 12 97 04/29/23 03:40 53 L 13 97 04/29/23 03:30 114/63 04/29/23 03:30 55 L 15 97 04/29/23 03:20 55 L 15 96 04/29/23 03:10 55 L 15 96 04/29/23 03:00 53 L 14 97 04/29/23 03:00 119/70 04/29/23 02:50 57 L 19 96 04/29/23 02:40 53 L 14 96 04/29/23 02:30 54 L 15 96 04/29/23 02:30 121/82 04/29/23 02:29 54 L 16 96 04/29/23 02:20 51 L 12 97 04/29/23 02:10 78 16 97 04/29/23 02:00 118/71 04/29/23 02:00 53 L 15 96 04/29/23 01:50 58 L 21 97 04/29/23 01:40 73 18 97 04/29/23 01:30 60 17 97 04/29/23 01:30 121/63 04/29/23 01:20 56 L 16 96 04/29/23 01:20 59 L 04/29/23 01:10 57 L 16 96 04/29/23 01:00 116/63 04/29/23 01:00 58 L 18 97 04/29/23 00:50 63 26 H 97 04/29/23 00:40 63 17 97 04/29/23 00:30 74 18 97 04/29/23 00:30 139/76 04/29/23 00:20 66 15 99 04/29/23 00:10 70 14 98 04/29/23 00:00 71 20 99 04/29/23 00:00 129/70 04/28/23 23:50 65 22 97 04/28/23 23:40 72 19 99 04/28/23 23:30 110/62 04/28/23 23:30 59 L 18 97 04/28/23 23:20 61 17 96 04/28/23 23:10 57 L 16 97 04/28/23 23:00 60 16 96 04/28/23 23:00 116/63 04/28/23 22:50 57 L 15 97 04/28/23 22:40 61 17 96 04/28/23 22:30 62 19 97 04/28/23 22:30 113/62 04/28/23 22:26 111/60 04/28/23 22:26 64 18 97 04/28/23 22:20 65 18 97 04/28/23 22:10 70 20 98 04/28/23 22:00 67 19 97 04/28/23 22:00 61 20 113/62 96 04/28/23 21:50 68 26 H 98 04/28/23 21:46 135/69 11/07/23 21:46 97 04/28/23 21:34 99 04/28/23 21:33 61 18 104/64 99 04/28/23 21:32 98 04/28/23 21:30 67 19 98 04/28/23 21:20 104/64 04/28/23 21:20 69 14 04/28/23 21:19 63 15 99 04/28/23 21:19 64 04/28/23 20:57 36.5 C 71 18 110/60 98 Pulse Ox O2 Del Method O2 Del Method 04/29/23 06:20 04/29/23 06:10 04/29/23 06:00 Room Air 04/29/23 06:00 04/29/23 06:00 04/29/23 05:50 04/29/23 05:40 04/29/23 05:30 04/29/23 05:30 04/29/23 05:24 Room Air 04/29/23 05:23 Room Air 04/29/23 05:20 04/29/23 05:10 04/29/23 05:00 04/29/23 05:00 04/29/23 05:00 Room Air 04/29/23 05:00 98 Room Air 04/29/23 04:50 04/29/23 04:40 04/29/23 04:30 04/29/23 04:30 04/29/23 04:20 04/29/23 04:10 04/29/23 04:00 04/29/23 04:00 04/29/23 03:50 04/29/23 03:40 04/29/23 03:30 04/29/23 03:30 04/29/23 03:20 04/29/23 03:10 04/29/23 03:00 04/29/23 03:00 04/29/23 02:50 04/29/23 02:40 04/29/23 02:30 04/29/23 02:30 04/29/23 02:29 04/29/23 02:20 04/29/23 02:10 04/29/23 02:00 04/29/23 02:00 04/29/23 01:50 04/29/23 01:40 04/29/23 01:30 04/29/23 01:30 04/29/23 01:20 04/29/23 01:20 04/29/23 01:10 04/29/23 01:00 04/29/23 01:00 04/29/23 00:50 04/29/23 00:40 04/29/23 00:30 04/29/23 00:30 04/29/23 00:20 04/29/23 00:10 04/29/23 00:00 04/29/23 00:00 04/28/23 23:50 04/28/23 23:40 04/28/23 23:30 04/28/23 23:30 04/28/23 23:20 04/28/23 23:10 04/28/23 23:00 04/28/23 23:00 04/28/23 22:50 04/28/23 22:40 04/28/23 22:30 04/28/23 22:30 04/28/23 22:26 04/28/23 22:26 04/28/23 22:20 04/28/23 22:10 04/28/23 22:00 04/28/23 22:00 Room Air 04/28/23 21:50 04/28/23 21:46 04/28/23 21:46 04/28/23 21:34 Room Air 04/28/23 21:33 Room Air 04/28/23 21:32 Room Air 04/28/23 21:30 04/28/23 21:20 04/28/23 21:20 04/28/23 21:19 04/28/23 21:19 04/28/23 20:57 Room Air Resident Activity Tracking Resident Involvement: Resident Care Provided Care Provided: Adult Hospital Medicine
--- NOTE | 2023-04-29 13:09 | Cardiology Consultation ---
Date of Consultation April 29, 2023 Assessment & Plan (1) Syncope and collapse: -suspect this may have been vasovagal due to his premorbid symptoms. -long-term event monitor has not revealed any significant arrhythmia. -short SD interval on EKG likely of little clinical significance. -would observe on telemetry another 24 hours. -will be seen by Dr. Ruano tomorrow morning. History of Present Illness Attending Physician: Vlad Holland DO History of Present Illness Mr. Mauro is a 22-year-old male admitted yesterday after an episode of traumatic syncope. This consultation was ordered to assist in his management. Of note, patient has been seen by Dr. Ruano. The patient was in his usual state of health last evening spending time with his friends at [facility]. He had 1 alcoholic beverage. While standing and talking with his friends, he began to note presyncopal symptoms of his head pounding," profuse diaphoresis, and tunnel vision. The patient told his friends that he was not feeling well and stepped out doors. He syncopized and immediately fell to the ground sustaining a laceration above his left eye. He was hospitalized on March 26 with an atypical chest pain syndrome and a possible syncopal event. He was seen in consultation by neurology who suggested a cardiac workup. An echocardiogram performed during the hospitalization noted normal systolic function and no valvular pathology. No dysrhythmias were identified on telemetry. His baseline EKG noted sinus rhythm without abnormalities. He was placed in a 30 day event monitor and discharged home. He was seen in consultation by Dr. Ruano on April 23. The atypical chest pain syndrome was of no concern. His complaints of dizziness were not felt to be secondary to a cardiac etiology. No dysrhythmias have been identified on his long-term event monitor. This includes the event that prompted this hospitalization. Currently, patient is resting comfortably in bed without complaints. Past medical and surgical history 1. Asthma 2. Migraine headaches 3. 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 Hails from [place], [place] No tobacco Social alcohol Family history No early coronary artery disease. Review of systems A 10 review systems undertaken and negative except that described above. Allergies Allergy/AdvReac Type Severity Reaction Status Date / Time tree nut Allergy Severe Anaphylaxis Verified 04/28/23 23:22 Penicillins Allergy Intermediate Hives Verified 04/28/23 23:22 pepper (genus Capsicum) Allergy Intermediate Hives Verified 04/28/23 23:22 Home Medications Medication Instructions Recorded Confirmed Type albuterol sulfate 90 mcg/actuation 2 puff inhalation DIRECTED PRN 03/27/23 04/28/23 History aerosol inhaler Shortness Of Breath Or Wheezing beclomethasone dipropionate 80 80 mcg intranasal DIRECTED 03/27/23 04/28/23 History mcg/actuation nasal HFA inhaler (QNASL) epinephrine 0.3 mg/0.3 mL 0.3 ml IM DIRECTED PRN Allergic 03/27/23 04/28/23 History injection, auto-injector Reaction Patient History Medical History Asthma Surgical History History of tonsillectomy and adenoidectomy Family History Other Cancer Social History Smoking Status: Never smoker Second Hand Exposure: No; Do You Dip or Chew Tobacco: No; Tobacco Cessation Education Requested by Patient: No Hx Alcohol Use: Yes Alcohol type: beer Alcohol type Comment: weekend use Hx Substance Use: Yes Prescribed Medications: Marijuana Last Used Substance: Days (ago) Preferred Language: Thai Communication Ability: Effective Online Marketer Required: No Beliefs That Will Affect Care: None Current Living Situation: Parent Current Living Situation Comment: with mother, at home Other Information That Helps Us Care for You: No Feels Safe at Home: Yes Safety Concerns: Feels Safe At This Time Assistive Devices: None Physical Exam Physical Exam: In general this is a well-developed well-nourished white male in no acute distress. HEENT exam notes a sutured laceration above the left eye. Neck is supple with full carotid upstrokes. There are no carotid bruits. Jugular venous pressure is flat at 90. There is no thyromegaly. Cardiovascular exam reveals a regular rhythm with a normal S1 and S2. No S3, S4, or murmurs are noted. Lungs are clear without rales, rhonchi, or wheezes. Abdomen is soft and nontender without bruits. Extremities reveal intact radial artery and posterior tibial pulses bilaterally. There is no peripheral edema. Results & Data Vital Signs (Past 12 Hours) Vital Signs Temp Pulse Pulse Resp BP BP Pulse Ox 04/29/23 10:05 55 L 18 134/67 98 04/29/23 08:58 54 L 20 115/68 98 04/29/23 06:20 74 12 98 04/29/23 06:10 45 L 13 97 04/29/23 06:00 04/29/23 06:00 49 L 14 97 04/29/23 06:00 112/74 04/29/23 05:50 50 L 12 97 04/29/23 05:40 46 L 13 97 04/29/23 05:30 111/61 04/29/23 05:30 49 L 17 97 04/29/23 05:24 37.1 C 50 L 14 123/76 98 04/29/23 05:23 04/29/23 05:20 47 L 18 97 04/29/23 05:10 49 L 13 97 04/29/23 05:00 123/76 04/29/23 05:00 50 L 15 97 04/29/23 05:00 49 L 16 123/76 98 04/29/23 05:00 04/29/23 04:50 48 L 14 98 04/29/23 04:40 51 L 13 97 04/29/23 04:30 51 L 15 97 04/29/23 04:30 130/77 04/29/23 04:20 52 L 13 96 04/29/23 04:10 56 L 17 96 04/29/23 04:00 52 L 14 97 04/29/23 04:00 105/69 04/29/23 03:50 50 L 12 97 04/29/23 03:40 53 L 13 97 04/29/23 03:30 114/63 04/29/23 03:30 55 L 15 97 04/29/23 03:20 55 L 15 96 04/29/23 03:10 55 L 15 96 04/29/23 03:00 53 L 14 97 04/29/23 03:00 119/70 04/29/23 02:50 57 L 19 96 04/29/23 02:40 53 L 14 96 04/29/23 02:30 54 L 15 96 04/29/23 02:30 121/82 04/29/23 02:29 54 L 16 96 04/29/23 02:20 51 L 12 97 04/29/23 02:10 78 16 97 04/29/23 02:00 118/71 04/29/23 02:00 53 L 15 96 04/29/23 01:50 58 L 21 97 04/29/23 01:40 73 18 97 04/29/23 01:30 60 17 97 04/29/23 01:30 121/63 04/29/23 01:20 56 L 16 96 04/29/23 01:20 59 L 04/29/23 01:10 57 L 16 96 04/29/23 01:00 116/63 04/29/23 01:00 58 L 18 97 Pulse Ox O2 Del Method O2 Del Method 04/29/23 10:05 Room Air 04/29/23 08:58 Room Air 04/29/23 06:20 04/29/23 06:10 04/29/23 06:00 Room Air 04/29/23 06:00 04/29/23 06:00 04/29/23 05:50 04/29/23 05:40 04/29/23 05:30 04/29/23 05:30 04/29/23 05:24 Room Air 04/29/23 05:23 Room Air 04/29/23 05:20 04/29/23 05:10 04/29/23 05:00 04/29/23 05:00 04/29/23 05:00 Room Air 04/29/23 05:00 98 Room Air 04/29/23 04:50 04/29/23 04:40 04/29/23 04:30 04/29/23 04:30 04/29/23 04:20 04/29/23 04:10 04/29/23 04:00 04/29/23 04:00 04/29/23 03:50 04/29/23 03:40 04/29/23 03:30 04/29/23 03:30 04/29/23 03:20 04/29/23 03:10 04/29/23 03:00 04/29/23 03:00 04/29/23 02:50 04/29/23 02:40 04/29/23 02:30 04/29/23 02:30 04/29/23 02:29 04/29/23 02:20 04/29/23 02:10 04/29/23 02:00 04/29/23 02:00 04/29/23 01:50 04/29/23 01:40 04/29/23 01:30 04/29/23 01:30 04/29/23 01:20 04/29/23 01:20 04/29/23 01:10 04/29/23 01:00 04/29/23 01:00 Laboratory Results CBC notes hemoglobin 15.1, crit 46.0, white count 9.9, platelet count of [id number]. Electrolytes note a sodium 136, potassium 3.9, chloride 101, bicarb 26, BUN 20, creatinine 1.25, glucose of 122. AST is mildly elevated 54 as is the ALT at 69. High sensitivity troponin is normal at 3.5. Diagnostic Findings EKG notes sinus rhythm with a sinus arrhythmia and a short SD interval. PG Care Time/CCT Total # of Minutes Spent Total Time Spent with Patient: Total time spent is greater than 50% in coordination of care (as documented) at patient's floor/unit and/or counseling patient: Coding Level of Care Code 46951 IN/OBS CONSULT LVL 4,60M Diagnoses Syncope and collapse R55
[2023-04-29 14:37] LABS: Amphetamines+Metham, Urine Neg (Neg); Barbiturates, Urine Neg (Neg); Benzodiazepine, Urine Neg (Neg); Cocaine, Urine Neg (Neg); MDMA (Ecstacy), Urine Neg (Neg); Marijuana, Urine Pos (Neg); Methadone, Urine Neg (Neg); Opiate, Urine Neg (Neg); Phencyclidine, Urine Neg (Neg)
[2023-04-29 14:41] LABS: Appearance Urine Clear (Clear); Bilirubin Urine Negative (Negative); Blood Urine Negative (Negative); Color Urine Yellow; Glucose Urine UA Negative (Negative); Ketones Urine Negative (Negative); Leukocyte Esterase Urine Negative (Negative); Nitrite Urine Negative (Negative); Protein Urine Negative (Negative); Specific Gravity Urine 1.011 (1.000-1.030); Urobilinogen Urine Negative (Negative); pH Urine 7.5 (4.5-7.5)
--- NOTE | 2023-04-29 15:58 | Electrocardiogram Report ---
Test Reason : Blood Pressure : / mmHG Vent. Rate : 061 BPM Atrial Rate : 061 BPM P-R Int : 120 ms QRS Dur : 094 ms QT Int : 382 ms P-R-T Axes : 057 075 075 degrees QTc Int : 384 ms Normal sinus rhythm with sinus arrhythmia Early repolarization Normal ECG When compared with ECG of 26-MAR-2023 21:53, QT has shortened Confirmed by Vinicius Mustafa ([id number]) on 04/29/2023 3:57:47 PM Referred By: REFERRED SELF Confirmed By:Vinicius Mustafa
--- NOTE | 2023-04-29 19:40 | Discharge Summary ---
Date of Service April 29, 2023 Admission HPI Per Admitting Provider The patient is a 22-year-old male with history of asthma and allergy, who presents to the emergency department with symptoms as noted above. He reports there is no family history of seizures or other neurologic or cardiac symptoms similar to his. He denies loss of bowel or bladder control, and has not had any recent signs of infection including respiratory, abdominal or urinary. Principal Diagnosis vasoactive syncope Discharge Exam gen aaox3 pleasant nad heent L sided facial laceration well approximated well h ealing Breathing unlabored no accessory muscle use good effort. Skin shows no rashes no pallor or icterus. Neuro without focal deficits. Exam otherwise as per resident physician progress note earlier today as well. Discharge Data Allergies Allergy/AdvReac Type Severity Reaction Status Date / Time tree nut Allergy Severe Anaphylaxis Verified 04/28/23 23:22 Penicillins Allergy Intermediate Hives Verified 04/28/23 23:22 pepper (genus Capsicum) Allergy Intermediate Hives Verified 04/28/23 23:22 Consultations 04/29/23 01:31 ED Decision to Admit Stat 04/29/23 04:17 Consult Cardiology Routine Ordered Studies 04/28/23 21:02 CT cervical spine wo con Stat CT face [CT facial bones wo con] Stat CT head/brain wo con Stat Hospital Course (1) Syncope and collapse: Multiple episodes recentlyextensive work-up fortunately quite negative for concerning cardiology and neurology causes history very consistent in some elements with vasovagal and in some elements with orthostaticcertainly seems to be vessel dilation/inappropriate lack of constriction and lack of appropriate heart rate response mediated has been sick with viral illnesses for much of the semester, and asthma seems to be suboptimally controlledboth probably leading to a degree of extra physiologic stress which could precipitate the events happening now, as well as some degree of air trapping likely reducing a degree of venous return to the right side of the heart after extensive discussions, and it appears to be safe for discharge, he noted that he would prefer to go home asthma appears to require maintenance treatmenton further discussions, he had Asmanex, but was taking it as needed, while taking his albuterol daily and as neededwe discussed the use of maintenance versus rescue inhalers, and for now have sent a prescription for Asmanex for once daily, and instructed on using it as maintenance, and the albuterol as neededwith the idea that we may still need to escalate his maintenance treatment further depending on his response instructed to stay well-hydrated and salt load for now close follow-upestablishing with PCP locally while he is a student so we can follow-up/follow through with things and ensure that he continues to get better or rework the plan if his symptoms change or fail to respond. Total Time Total Time Spent Total Time Spent (In Minutes): >30 Discharge Plan Discharge Items Patient Disposition: Home - Self-Care Reason For Visit: SYNCOPE, FACIAL LACERATION Discharge Diagnosis: syncope - see below Condition on Discharge: Good Activity: Resume your previous activity Non-emergency contact: Primary Care Provider Call non-emergency contact if: you have any medication questions Follow-up/Referrals: [place] [Primary Care Provider] - Diet: Regular Addtl Attending Provider Instructions: "vasoactive syncope" As we discussed, your situation appears to be a bit of a "perfect storm" of events. It is likely that being sick with viral illnesses for much of the fall semester, and having worse control of your asthma (likely leading to some air trapping in your chest which can actually diminish some of the blood return to your heart) sets up circumstances that can behave like an "orthostatic event"where dehydration or reduced blood vessel constriction can reduce her blood return, causing a transient drop in blood pressure and loss of consciousness. This appears to be combined with a little bit of the randomness that can happen with a vasovagal response (often where are rest and digest nervous system becomes transiently dominant making our blood vessels dilate and slowing her heart rate or at least preventing it from racing appropriate to match the drop in blood pressure)and so it really is a situation that bridges across both. - Fortunately your work-up for "big/bad/ugly" diagnoses has really been of zero yieldyour cardiac work-up showed no evidence of structural heart disease or electrical/rhythm problems, including the monitoring while you had your event this admission; your story does not really fit as well with something neurologic, but the MRI of your brain being normal is extremely reassuring and ruling out any sort of tumor or brain scarring/other abnormalities and the EEG (brainwave test) did not show any seizure activity (although more importantly your story fits more with a vasoactive event rather than a seizure) - your mother having POTS definitely suggests that there is a bit of a genetic predilection to these types of events as well, probably further explaining why it would happen in this context - I do not expect this to be a permanent problem that you are dealing with, but rather if we get the asthma under better control and allow time to recover from the viral illnesses, my biggest suspicion is that this will "fade to black" just like it came on out of nowhere - see below for the asthma - continue to stay well-hydratedit sounds like you do a great job of thatbut to be sure, you want to make sure that you are drinking at least 60-80 ounces of fluid a day and an extra 5-10 ounces of fluid per hour of exercise - while your body is in its current state, we will want you to salt load to make the fluid "stick" betterdefinitely do not do this forever, but while you are going through this phase, I would probably have you take [id number] mg of sodium a day (something as simple as a bowl of Ramen noodles for lunch will get the job done) - while the episodes themselves are lousy, the fact that they always have a prodrome ("warning shot") means that now that you know what to look for you should be able to protect yourself from harm from falling. When you start to feel that throbbing or blurred vision, sit down, or better yet lay down. This should be able to prevent a true loss of consciousnessand definitely will prevent you falling/hitting yourself on the way down. This can be a little bit awkward depending on the setting you are and if you start to feel it happened, but given that the event is probably going to make you go to the ground involuntarily, it is better to sit or lay down voluntarily then to pass out. - Definitely be aware of how you are feeling whenever you are exposed to a lot of heatheat (hot water, hot shower, warm rooms) would lead to dilation of blood vessels that can accentuate the problem asthma: - Given that your asthma has been under suboptimal control this semester, and given that you been sick with a lot of viral illnesses, and think we probably need to be doing more to keep your asthma under control. When asthma is flaring up and we air trapped, that will create more pressure in your lungs/in her chestand this can absolutely accentuate the fainting by reducing "venous return" (the blood flow going from our veins to the right side of her heart)w hich for all intents and purposes might as well make you "acutely and suddenly dehydrated" - as is often the case, I think you probably do have the right inhalers, but we often do not do the best job of teaching patients how to use them. The ProAir (albuterol) as a rescue inhalerideally you do not need it at all, or only needed before exercise. The Asmanex (inhaled steroid) is the maintenance i nhaler that is made to try to prevent the asthma from acting up. While we cannot always achieve this, I generally follow the rules that if I have a patient with asthma who is needing the rescue inhaler more than about once a week (excluding using it before exercise towards the count) we likely should be doing more with the maintenance inhaler to control the asthma better - for now: Take the Asmanex once a day in the morning. Depending on how you are feeling in about a month (by the end of the first week of May) that would be a decent) amount if once a day Asmanex is enough, or if we will need to escalate to a higher dose of Asmanex, or even escalate to a combination inhaler such as Advair. (Like we talked there are so many different "me to" brands of more or less the same inhalerif we run into cost/coverage issues there is really no reason to pick one over anotherI am simply using names of inhalers that you are the most familiar with) --- continue to take the ProAir (albuterol as neededup to every 4-6 hours as needed for shortness of breath/tightness/tight coughand for the next week or 2 it would not surprise me if you still need it every bit as often as you have been taking it, but over time, we should hopefully see that you need it less and less - How again this relates to the fainting spellsif we open up your lungs more and have less pressure in your chest, it may allow for better venous return to the right side of your heart which will make you less prone to fainting follow-up: - I always look at diagnoses as a "work in progress" and especially diagnoses like these. It will be very important to follow you closely to make sure that things either get better as they should, or if things are changing/the details are changing/what we need to be doing to help is not quite helping enoughwe will to make sure that were on top of it rather than having you continue to have bad fainting spells and end up in the ER we will have you follow-up with our residents at the [facility] family medicine clinicobviously we were not able to get you scheduled tonight, but they will be calling tomorrow to get you in. the resident who took care of you with me was Dr Sullivan. our other residents familiar with your case were Dr Hicks and Dr Altman. once we have you in with someone, the one drawback with the [facility] family medicine office is that the front office java developer sometimes makes it frustrating to maintain continuity with the same doc - just be a little bit of a bully when it comes to scheduling ("no, i'm sure that doc is fine, but my doc is X and i really need to be seeing them") [facility] Family Medicine: [facility] [address], ( If for what ever reason [facility] does not work with your insurance, then our backup plan would be to follow-up with Dr. Pat of [facility] on [facility] in [place] [phone]) expect to hear from the office tomorrow, or no later than Thursday morning to schedule your appointment follow-upif you have not heard by Thursday morning, please call to close the loop/make sure nothing has slipped through the cracks. (I apologize if the above instructions are more laden with typos than I would normally allowbut knowing that it is getting late and we were trying to get you home, I did when she left waiting on me building your discharge instructionsjust make fun of me if the typos are particularly bad!) Pending Studies at Discharge: No Stand-Alone Forms: [employer], Smoking Cessation Medications and DC Order Prescriptions: New Asmanex Twisthaler 220 mcg/ actuation (30) aerosol powdr breath activated 1 inh inhalation DAILY Qty: 1 2RF Continued epinephrine 0.3 mg/0.3 mL auto-injector 0.3 ml IM DIRECTED PRN (Reason: Allergic Reaction) albuterol sulfate 90 mcg/actuation HFA aerosol inhaler 2 puff INHALATION DIRECTED PRN (Reason: Shortness Of Breath Or Wheezing) QNASL 80 mcg/actuation HFA aerosol inhaler 80 mcg INTRANASAL DIRECTED Discharge Orders: Discharge Order (Routine); Ordered 04/29/23 Ordered By: Vlad Holland Admission Data Admit Date/Time: 04/29/23 01:53 Attending Provider: Vlad Holland Admit Provider: Freddy Burkett Primary Care Provider: [facility] Other Providers: Freddy Burkett; Misha Aguilera Coding Level of Care Code 93131 INP/OBS DISCH >30 MIN Diagnoses Syncope and collapse R55
[2023-05-03 08:32] LABS: Marijuana Quant, GCMS Urine 301 ng/mL (<5)
== END 2023-04-29 19:30 | disposition home or self-care (01) ==
LOC: ED 20:46 → EDINP 20:46 → SUATTDRO 04-29 01:53 → EDINP 04-29 04:17